=== PATIENT | male | born 1950 | race Caucasian/White ===

== ENCOUNTER → 2017-03-21 | Outpatient (CLI) | payer MEDICARE ==
--- NOTE | 2017-03-21 09:19 | US ---
EXAMINATION TYPE: US abdomen complete DATE OF EXAM: 03/21/2017 COMPARISON: NONE CLINICAL HISTORY: R11.2 Nausea, vomiting, diarrhea. EXAM MEASUREMENTS: Liver Length: 14.9 cm Gallbladder Wall: 0.2 cm CBD: 0.5 cm Spleen: 10.8 cm Right Kidney: 9.9 x 5.5 x 5.4 cm Left Kidney: 11.7 x 6.5 x 5.6 cm Pancreas: Tail obscured by overlying bowel gas, visualized portions show no mass Liver: Coarse, heterogeneous echotexture Gallbladder: wnl Evidence for sonographic Bravo's sign: No CBD: wnl Spleen: wnl Right Kidney: Multiple cystic areas visualized. Largest in lower pole measuring 7.1 x 7.4 x 6.7 cm Left Kidney: No hydronephrosis or masses seen Upper IVC: wnl Abd Aorta: wnl IMPRESSION: 1. Large inferior pole right renal cyst. 2. Visualized abdomen otherwise is unremarkable
== END | disposition home or self-care (01) ==
LOC: RADUSWWP 08:04
PROVIDERS: ATTEND Family Medicine
DX: N28.1 Cyst of kidney, acquired (principal); R11.2 Nausea with vomiting, unspecified
CPT/HCPCS: 76700

== ENCOUNTER → 2017-11-03 | Outpatient (CLI) | payer MEDICARE | END | disposition home or self-care (01) | LOC: LABWHC1 08:56 | PROVIDERS: ATTEND Nurse Practitioner | DX: Z12.5 Encounter for screening for malignant neoplasm of prostate (principal) | CPT/HCPCS: 36415; G0103 ==

== ENCOUNTER → 2018-06-24 | Outpatient (CLI) | payer MEDICARE ==
[2018-06-24 11:05] LABS: Prothrombin Time 19.3 sec (9.0-12.0)
== END ==
LOC: LABWHC1 09:44
PROVIDERS: ATTEND Internal Medicine Cardiovascular Disease
DX: I48.2 Chronic atrial fibrillation (principal)
CPT/HCPCS: 36415; 85610

== ENCOUNTER → 2018-10-27 | Outpatient (CLI) | payer MEDICARE ==
--- NOTE | 2018-10-27 14:17 | US ---
EXAMINATION TYPE: US scrotum with doppler. Grayscale and color Doppler Duplex imaging performed of t he scrotum. DATE OF EXAM: 10/27/2018 COMPARISON: NONE CLINICAL HISTORY: N50.9 Disorder of male genital organs. pea sized palp on right testicle for a few w eeks EXAM MEASUREMENTS: TESTICLES: Right Testicle: 3.9 x 3.2 x 2.3 cm Left Testicle: 4.1 x 3.8 x 2.1 cm EPIDIDYMIS HEAD: Right Epididymis: 1.1 cm Left Epididymis: 1.0 cm Doppler performed to assess for testicular vascularity; good bilateral color flow and waveforms are s een. There is no evidence of testicular torsion. Presence of hydroceles: mild bilaterally Presence of varicoceles: yes, mild on the right, more prominent lateral to left testicle. 5mm calcification seen at area of palp near right epididymis appearance of rete testis on the left midline calcification seen on bilateral testicle imaging at end of exam. IMPRESSION: 1. Focal calcification at the site of clinical concern near the right epididymis.
== END | disposition home or self-care (01) ==
LOC: RADUSWWP 13:27
PROVIDERS: ATTEND Family Medicine
DX: N50.89 Other specified disorders of the male genital organs (principal)
CPT/HCPCS: 76870; 93975

== ENCOUNTER 2024-04-02 22:09 | Inpatient (IN) | payer MEDICARE ==
[2024-04-02] MEDS: ADENOSINE 3 MG/ML 2 ML VIAL IVP STA (22:25)
--- NOTE | 2024-04-02 22:39 | ED ---
Chest Pain HPI - General Chief Complaint: Chest Pain Stated Complaint: Chest Pain Time Seen by Provider: 04/02/24 22:19 Source: patient Mode of arrival: ambulatory Limitations: no limitations - History of Present Illness Initial Comments: This patient is a 73-year-old man who presents to have evaluation of thoracic back pain radiating to the chest. He states that it came on tonight approximately 2 to 3 hours ago. He states he was just sitting when it came on. The patient also noted some shortness of breath and diaphoresis. When the symptoms did not resolve family convinced him to be seen here. MD Complaint: chest pain Onset/Timin -: hour(s) Onset: during rest Pain Location: substernal Pain Radiation: back Severity: moderate Quality: aching Consistency: constant Improves With: nothing Worsens With: nothing Anginal Symptoms: diaphoresis, dyspnea Treatments Prior to Arrival: none - Related Data Home Medications Medication Instructions Recorded Confirmed metFORMIN HCL [Glucophage] 500 mg PO AC-BID 03/30/15 04/03/24 Apixaban [Eliquis] 5 mg PO BID 04/03/24 04/03/24 gemfibroziL [Lopid] 600 mg PO AC-BID 04/03/24 04/03/24 Previous Rx's Medication Instructions Recorded Amiodarone [Cordarone] 200 mg PO BID 60 Days #30 tab 04/08/24 Aspirin 81 mg PO DAILY 30 Days #30 tab 04/08/24 Atorvastatin [Lipitor] 80 mg PO DAILY 30 Days #30 tab 04/08/24 Losartan [Cozaar] 100 mg PO DAILY 30 Days #30 tab 04/08/24 Metoprolol Succinate (ER) [Toprol 75 mg PO DAILY 30 Days #30 tab 04/08/24 XL] Nitroglycerin Sl Tabs [Nitrostat] 0.4 mg SUBLINGUAL Q5M PRN 30 Days 04/08/24 #25 tab Spironolactone [Aldactone] 50 mg PO DAILY 30 Days #30 tab 04/08/24 Allergies Allergy/AdvReac Type Severity Reaction Status Date / Time No Known Allergies Allergy Verified 04/03/24 09:37 Review of Systems ROS Statement: Those systems with pertinent positive or pertinent negative responses have been documented in the HPI. ROS Other: All systems not noted in ROS Statement are negative. Constitutional: Denies: fever, chills, weakness Respiratory: Reports: dyspnea. Denies: cough, wheezes Cardiovascular: Reports: chest pain. Denies: palpitations, orthopnea, edema, syncope Gastrointestinal: Denies: abdominal pain, nausea, vomiting, diarrhea, melena, hematochezia Genitourinary: Denies: dysuria, hematuria Musculoskeletal: Denies: back pain Skin: Denies: rash Neurological: Denies: headache, weakness, numbness EKG Findings - EKG Results: EKG: interpreted by ILENE Past Medical History Past Medical History: Atrial Fibrillation, Coronary Artery Disease (CAD), Diabetes Mellitus, Hyperlipidemia, Hypertension, Myocardial Infarction ([place]) Additional Past Medical History / Comment(s): GOUT Last Myocardial Infarction Date:: 1990 History of Any Multi-Drug Resistant Organisms: None Reported Past Surgical History: Heart Catheterization, Heart Catheterization With Stent Additional Past Surgical History / Comment(s): heart cath Past Anesthesia/Blood Transfusion Reactions: Motion Sickness Date of Last Stent Placement:: 08/02/02 Past Psychological History: No Psychological Hx Reported Smoking Status: Never smoker Past Alcohol Use History: Occasional Past Drug Use History: Marijuana - Past Family History Mother Family Medical History: Cancer General Exam Limitations: no limitations General appearance: alert, in no apparent distress Head exam: Present: atraumatic, normocephalic Eye exam: Present: normal appearance. Absent: scleral icterus, conjunctival injection ENT exam: Present: normal oropharynx Neck exam: Present: normal inspection, full ROM Respiratory exam: Present: normal lung sounds bilaterally. Absent: respiratory distress, wheezes, rales, rhonchi, stridor, chest wall tenderness, accessory muscle use Cardiovascular Exam: Present: tachycardia. Absent: systolic murmur, diastolic murmur, rubs, gallop GI/Abdominal exam: Present: soft. Absent: distended, tenderness, guarding, rebound, rigid, mass, pulsatile mass Extremities exam: Present: normal inspection, normal capillary refill. Absent: pedal edema, calf tenderness Back exam: Present: normal inspection. Absent: CVA tenderness (R), CVA tenderness (L) Neurological exam: Present: alert Skin exam: Present: warm, dry, intact, normal color. Absent: rash Course Vital Signs 04/02/24 04/02/24 04/02/24 22:13 22:33 22:40 Temperature 97.8 F Pulse Rate 202 H 203 H 200 H Pulse Rate [ Supine Patient Transport Officer] Respiratory 20 14 14 Rate Blood Pressure 126/84 113/87 125/74 O2 Sat by Pulse 98 98 97 Oximetry 04/02/24 04/02/24 04/03/24 22:50 22:51 00:13 Temperature Pulse Rate 200 H 67 Pulse Rate [ 200 H Supine Patient Transport Officer] Respiratory 12 20 Rate Blood Pressure 118/95 85/65 O2 Sat by Pulse 98 Oximetry 04/03/24 04/03/24 04/03/24 01:39 03:00 04:32 Temperature Pulse Rate 63 69 60 Pulse Rate [ Supine Patient Transport Officer] Respiratory 18 20 18 Rate Blood Pressure 100/60 92/65 114/75 O2 Sat by Pulse 95 96 98 Oximetry 04/03/24 04/03/24 04/03/24 08:00 11:00 12:00 Temperature Pulse Rate 63 61 71 Pulse Rate [ Supine Patient Transport Officer] Respiratory 20 16 16 Rate Blood Pressure 115/71 126/79 131/79 O2 Sat by Pulse 96 92 L Oximetry 04/03/24 13:00 Temperature Pulse Rate 65 Pulse Rate [ Supine Patient Transport Officer] Respiratory 18 Rate Blood Pressure 130/60 O2 Sat by Pulse 98 Oximetry Procedures - Procedural Sedation *Risks,benefits, and alternative therapies discussed?: Yes *Patient indicates understanding of risk/benefit discussion?: Yes *Indications: other (Synchronized cardioversion) *Previous Adverse Reaction to Anesthesia/Sedation?: No *ASA Class: II *Mallampati Airway Score: 1 Preparation: monitoring tech applied, pulse oximeter, supplemental O2 applied, suction/airway equipment at bedside, IV secured IV Propofol Dose (mgs): 80 Complications: none Patient Tolerated Procedure: well, no complications Chest Pain MDM - MDM The patient had chest x-ray that I interpreted as negative for acute infiltrate, pneumothorax, congestive heart failure Was pt. sent in by a medical professional or institution (, PA, PET AMBASSADOR, urgent care, hospital, or [facility]...) When possible be specific @ -[No] Did you speak to anyone other than the patient for history (EMS, parent, family, police, friend...)? What history was obtained from this source @ -[No] Did you review nursing and triage notes (agree or disagree)? Why? @ -[I reviewed and agree with nursing and triage notes] Were old charts reviewed (outside hosp., previous admission, EMS record, old EKG, old radiological studies, urgent care reports/EKG's, [facility] records)? Report findings @ -[Yes, old charts were reviewed] Differential Diagnosis (chest pain, altered mental status, abdominal pain women, abdominal pain men, vaginal bleeding, weakness, fever, dyspnea, syncope, headache, dizziness, GI bleed, back pain, seizure, CVA, palpatations, mental health, musculoskeletal)? @ -[Differential Chest Pain: Stable Angina, Unstable Angina, STEMI, NSTEMI Aortic Dissection, Pneumothorax, Musculoskeletal, Esophageal Spasm GERD, Cholecystitis, Pancreatitis, Zoster, this is not meant to be an all-inclusive list. EKG interpreted by me (3pts min.). @ -[I interpreted as above] X-rays interpreted by me (1pt min.). @ -[I interpreted as above CT interpreted by me (1pt min.). @ -[None done] U/S interpreted by me (1pt. min.). @ -[None done] What testing was considered but not performed or refused? (CT, X-rays, U/S, labs)? Why? @ -[None] What meds were considered but not given or refused? Why? @ -[None] Did you discuss the management of the patient with other professionals (professionals i.e. , PA, PET AMBASSADOR, lab, RT, psych nurse, director social welfare, stuffer, teacher, property officer, case finishing machine adjuster)? Give summary @ -[I discussed the patient's case with the admitting physician and also with cardiology on-call. Treatment recommendations are incorporated Was smoking cessation discussed for >3mins.? @ -[No] Was critical care preformed (if so, how long)? @ -[Yes, 45 minutes Were there social determinants of health that impacted care today? How? (Homelessness, low income, unemployed, alcoholism, drug addiction, transportation, low edu. Level, literacy, decrease access to med. care, custodial, rehab)? @ -[No] Was there de-escalation of care discussed even if they declined (Discuss DNR or withdrawal of care, Hospice)? DNR status @ -[No] What co-morbidities impacted this encounter? (DM, HTN, Smoking, COPD, CAD, Cancer, CVA, ARF, Chemo, Hep., AIDS, mental health diagnosis, sleep apnea, morbid obesity)? @ -[CAD, previous myocardial infarction Was patient admitted / discharged? Hospital course, mention meds given and route, prescriptions, significant lab abnormalities, going to OR and other pertinent info. @ -[Patient is admitted to have further cardiology evaluation and treatment Undiagnosed new problem with uncertain prognosis? @ -[No] Drug Therapy requiring intensive monitoring for toxicity (Heparin, Nitro, Insulin, Cardizem)? @ -[No] Were any procedures done? @ -Yes, synchronized cardioversion. I discussed the risks, benefits, indications of both cardioversion and procedural sedation and the patient did consent. The patient given IV propofol and once adequate sedation was obtained the patient given synchronized cardioversion which resulted in patient reverting to sinus rhythm. No complications related to procedure Diagnosis/symptom? @ -[Acute ventricular tachycardia NSTEMI Synchronized cardioversion with procedural sedation Acute, or Chronic, or Acute on Chronic? @ -[Acute Uncomplicated (without systemic symptoms) or Complicated (systemic symptoms)? @ -[Uncomplicated Side effects of treatment? @ -[No] Exacerbation, Progression, or Severe Exacerbation? @ -[No] Poses a threat to life or bodily function? How? (Chest pain, [place], [place], pneumonia, PE, COPD, DKA, ARF, appy, cholecystitis, CVA, Diverticulitis, Homicidal, Suicidal, threat to staff... and all critical care pts) @ -[Yes Disposition Clinical Impression: Ventricular tachycardia Disposition: ADMITTED IP TO THIS HOSP Condition: Serious
[2024-04-02] MEDS: DEXTROSE 5% IN WATER 100 ML with AMIODARONE 150 MG IV ONE (22:46)
[2024-04-02] MEDS: ASPIRIN 81 MG PO STA (22:48)
[2024-04-02 22:50] LABS: Basophils % (A) 0 %; Eosinophils # (A) 0.1 k/uL (0-0.7); Eosinophils % (A) 1 %; HCT 45.6 % (39.0-53.0); HGB 14.3 gm/dL (13.0-17.5); Lymphocytes # (A) 0.9 k/uL (1.0-4.8); Lymphocytes % (A) 8 %; MCH 30.8 pg (25.0-35.0); MCHC 31.3 g/dL (31.0-37.0); MCV 98.3 fL (80.0-100.0); Mean Platelet Volume 6.8; Monocytes # (A) 0.5 k/uL (0-1.0); Monocytes % (A) 5 %; Neutrophils # (A) 9.9 k/uL (1.3-7.7); Neutrophils % (A) 85 %; Platelet Count 268 k/uL (150-450); RBC 4.64 m/uL (4.30-5.90); RDW 13.2 % (11.5-15.5); WBC 11.6 k/uL (3.8-10.6)
[2024-04-02 23:00] LABS: ALT 16 U/L (4-49); AST 28 U/L (17-59); African American GFR (CKD) 68 (>60 ml/min/1.73 sqM); Albumin 4.7 g/dL (3.5-5.0); Alkaline Phosphatase 91 U/L (38-126); Anion Gap 11 mmol/L; Blood Urea Nitrogen 31 mg/dL (9-20); Calcium 10.2 mg/dL (8.4-10.2); Carbon Dioxide 23 mmol/L (22-30); Chloride 103 mmol/L (98-107); Glucose 191 mg/dL (74-99); INR 1.2 (<1.2); Magnesium 1.6 mg/dL (1.6-2.3); Non-African American GFR(CKD) 59 (>60 ml/min/1.73 sqM); Potassium 4.4 mmol/L (3.5-5.1); Prothrombin Time 12.3 sec (10.0-12.5); Sodium 137 mmol/L (137-145); Total Bilirubin 0.7 mg/dL (0.2-1.3); Total Protein 7.5 g/dL (6.3-8.2)
[2024-04-02] MEDS: AMIODARONE 360 MG in DEXTROSE 5% IN WATER 200 ML IV ONE (23:17)
[2024-04-03] MEDS: PROPOFOL 10 MG/ML 20 ML VIAL IV ONE (00:06)
--- NOTE | 2024-04-03 01:41 | XR ---
EXAM: XR Chest, 1 View CLINICAL HISTORY: ITS.REASON XR Reason: dysrhythmia TECHNIQUE: Frontal view of the chest. COMPARISON: No relevant prior studies available. FINDINGS: Lungs: Moderate RIGHT middle lobe pneumonia. Pleural space: Unremarkable. No pneumothorax. Heart: Cardiomegaly. Mediastinum: Unremarkable. Normal mediastinal contour. Bones/joints: Unremarkable. No acute fracture. IMPRESSION: Moderate RIGHT middle lobe pneumonia.
[2024-04-03] MEDS ORDERED: NITROGLYCERIN SL TABS 0.4 MG TAB SUBLINGUAL PRN ×2 (01:50→11:40)
[2024-04-03] MEDS: HEPARIN SODIUM 1,000 UN/ML (10ML VL) IV ONE (02:20)
[2024-04-03] MEDS: HEPARIN SOD,PORK IN 0.45% NACL 25,000 UNIT in 0.45% NACL 1 250ML.BAG IV SCH (02:21)
[2024-04-03 03:56] LABS: Appearance,Urine Clear (Clear); Bilirubin,Urine Negative (Negative); Blood,Urine Negative (Negative); Color,Urine Light Yellow; Glucose,Urine (UA) Negative (Negative); Ketones,Urine Negative (Negative); Leukocyte Esterase,Urine Negative (Negative); Nitrite,Urine Negative (Negative); PH, Urine 5.5 (5.0-8.0); Protein,Urine Trace (Negative); Specific Gravity,Urine 1.026 (1.001-1.035); Urobilinogen,Urine <2.0 mg/dL (<2.0)
[2024-04-03] MEDS: AZITHROMYCIN 500 MG TAB PO STA (04:30)
[2024-04-03 04:34] LABS: Mean Platelet Volume 7.9; Platelet Count 223 k/uL (150-450)
[2024-04-03] MEDS ORDERED: HEPARIN SODIUM,PORCINE (1 ML) 2,500 UNIT in SODIUM CHLORIDE 0.9% 250 ML IRRIGATION PRN (07:00)
[2024-04-03] MEDS ORDERED: HEPARIN SODIUM,PORCINE 10,000 UNIT in SODIUM CHLORIDE 0.9% 1,000 ML IRRIGATION PRN (07:00)
[2024-04-03] MEDS: ONDANSETRON 4 MG/2 ML VIAL IVP STA (07:08)
[2024-04-03] MEDS: METOPROLOL TARTRATE 25 MG TAB PO SCH (10:29)
[2024-04-03] MEDS ORDERED: ALPRAZolam 0.5 MG TAB PO PRN (11:40)
--- NOTE | 2024-04-03 11:48 | P.CRDCN ---
History of Present Illness Consult date: 04/03/24 History of present illness: History of Present Illness: The patient is a 73-year-old male who is followed by cyber forensic specialist in [place] and presents to the hospital with symptoms of back discomfort, chest discomfort and dyspnea, reminding him of the way he felt prior to his PCI. He has a known history of CAD status post stenting in the 90s, underwent cardiac catheterizat ion according to him few months ago and no intervention was needed with mild to moderate disease, detail of his workup is unavailable. He had a prior history of myocardial infarction prior to the stenting. On presentation he was tachycardic with a rate in the 200 and his EKG was consistent with ventricular tachycardia. He was given initially adenosine and subsequently amiodarone without change and subsequently underwent cardioversion with muslim of sinus mechanism. He is doing well this morning, he denies any chest discomfort, his breathing is stable. He denies any dizziness or palpitations. He has a prior history of paroxysmal atrial fibrillation and has been anticoagulated. He has no significant peripheral edema, no PND or orthopnea. He is unaware of his ejection fraction but does not carry the diagnosis of CHF or cardiomyopathy. His lab data showed a troponin elevated up to 7.1, his EKG is consistent with anterior wall myocardial infarction. His clearance factors are positive for hypertension, hyperlipidemia, diabetes, he smokes marijuana. Medications: Metformin, Lopid, Tenormin 25 mg daily, losartan 25 mg daily, Lipitor 40 mg daily, Eliquis 5 mg twice a day Review of Systems: Respiratory: He has dyspnea on exertion but no recent wheezing or cough GI: No nausea or vomiting . No history of peptic ulcer disease. No recent GI bleed. He has a remote history of bleeding and is scheduled to undergo colonoscopy by Dr. Justice : No hematuria or dysuria. Nervous System: No stroke or seizure. Physical Examination: 73-year-old male, alert oriented no apparent distress,Blood pressure 126/79, Heart rate 60 Head: Normocephalic. Eyes: Sclerae nonicteric. Neck: Good carotid upstroke, no bruit, no jugular venous distention. Lungs: Clear to auscultation. Heart: Regular rate and rhythm, S1-S2, no S3, no rub. Systolic ejection murmur. Abdomen: Soft nontender, positive bowel sounds no organomegaly. Extremities: No edema, intact distal pulses. Labs: Hemoglobin 14.3, BUN 31, creatinine 1.21. Troponin 0.22, 4.2, 7.1. Chest x-ray with suggestion of right middle lobe pneumonia EKG: Wide-complex tachycardia at a rate of 202 consistent with ventricular tachycard ia, subsequently sinus mechanism with QS pattern in the anterior leads consistent with anterior wall myocardial infarction Impression: 1. Ventricular tachycardia, status post cardioversion, back in sinus mechanism 2. Acute coronary syndrome, unclear if the anterior wall myocardial infarction is recent, no old EKGs available 3. History of prior stenting 4. History of hypertension 5. History of hyperlipidemia 6. History of diabetes Plan: 1. Continue IV heparin 2. Continue beta-ricardo 3. Obtain an echocardiogram with Doppler 4. Proceed with coronary angiography, the risks and the complications were discussed with the patient and his family, he is in full understanding and agreement 5. Thank you for this consult we will follow with you Past Medical History Past Medical History: Atrial Fibrillation, Coronary Artery Disease (CAD), Diabetes Mellitus, Hyperlipidemia, Hypertension, Myocardial Infarction ([place]) Additional Past Medical History / Comment(s): GOUT Last Myocardial Infarction Date:: 1990 History of Any Multi-Drug Resistant Organisms: None Reported Past Surgical History: Heart Catheterization, Heart Catheterization With Stent Additional Past Surgical History / Comment(s): heart cath Past Anesthesia/Blood Transfusion Reactions: Motion Sickness Date of Last Stent Placement:: 08/02/02 Past Psychological History: No Psychological Hx Reported Smoking Status: Never smoker Past Alcohol Use History: Occasional Past Drug Use History: Marijuana - Past Family History Mother Family Medical History: Cancer Medications and Allergies Home Medications Medication Instructions Recorded Confirmed Type Atorvastatin [Lipitor] 40 mg PO HS 03/30/15 04/03/24 History metFORMIN HCL [Glucophage] 500 mg PO AC-BID 03/30/15 04/03/24 History Apixaban [Eliquis] 5 mg PO BID 04/03/24 04/03/24 History Losartan [Cozaar] 25 mg PO HS 04/03/24 04/03/24 History atenoloL [Tenormin] 25 mg PO DAILY 04/03/24 04/03/24 History gemfibroziL [Lopid] 600 mg PO AC-BID 04/03/24 04/03/24 History Allergies Allergy/AdvReac Type Severity Reaction Status Date / Time No Known Allergies Allergy Verified 04/03/24 09:37 Physical Exam Vitals: Vital Signs Temp Pulse Pulse Resp BP Pulse Ox 04/03/24 11:00 61 16 126/79 04/03/24 08:00 63 20 115/71 96 04/03/24 04:32 60 18 114/75 98 04/03/24 03:00 69 20 92/65 96 04/03/24 01:39 63 18 100/60 95 04/03/24 00:13 67 20 85/65 98 04/02/24 22:51 200 H 04/02/24 22:50 200 H 12 118/95 04/02/24 22:40 200 H 14 125/74 97 04/02/24 22:33 203 H 14 113/87 98 04/02/24 22:13 97.8 F 202 H 20 126/84 98 Intake and Output 04/02/24 04/03/24 04/03/24 22:59 06:59 14:59 Intake Total 32.895 Balance 32.895 Intake: Intake, IV Titration 32.895 Amount Heparin Sod,Pork in 0.45% 32.895 NaCl 25,000 unit In 0.45 % NaCl 1 250ml.bag @ 12 UNITS/KG/HR 10.07 mls/hr IV .Q24H [facility] Rx#: [id number] Other: Weight 83.915 kg Results 04/03/24 03:55 04/02/24 22:36 Cardiac Enzymes 04/02/24 04/02/24 04/03/24 Range/Units 22:36 22:36 03:55 AST 28 (17-59) U/L Troponin I 0.222 H* 4.230 H* (0.000-0.034) ng/mL 04/03/24 Range/Units 07:45 AST (17-59) U/L Troponin I 7.150 H* (0.000-0.034) ng/mL Coagulation 04/02/24 04/03/24 Range/Units 22:36 03:55 PT 12.3 (10.0-12.5) sec APTT 29.0 94.5 H (22.0-30.0) sec CBC 04/02/24 04/03/24 Range/Units 22:36 03:55 WBC 11.6 H (3.8-10.6) k/uL RBC 4.64 (4.30-5.90) m/uL Hgb 14.3 (13.0-17.5) gm/dL Hct 45.6 (39.0-53.0) % Plt Count 268 223 (150-450) k/uL Comprehensive Metabolic Panel 04/02/24 Range/Units 22:36 Sodium 137 (137-145) mmol/L Potassium 4.4 (3.5-5.1) mmol/L Chloride 103 (98-107) mmol/L Carbon Dioxide 23 (22-30) mmol/L BUN 31 H (9-20) mg/dL Creatinine 1.21 (0.66-1.25) mg/dL Glucose 191 H (74-99) mg/dL Calcium 10.2 (8.4-10.2) mg/dL AST 28 (17-59) U/L ALT 16 (4-49) U/L Alkaline Phosphatase 91 (38-126) U/L Total Protein 7.5 (6.3-8.2) g/dL Albumin 4.7 (3.5-5.0) g/dL Current Medications Generic Name Dose Route Start Last Admin Trade Name Freq PRN Reason Stop Dose Admin Heparin Sodium/Sodium Chloride 250 mls @ 10.07 mls/hr 04/03/24 02:00 04/03/24 06:55 25,000 unit/ Sodium Chloride IV 9 units/kg/hr .Q24H JONI 7.552 mls/hr Titration Protocol 12 UNITS/KG/HR Metoprolol Tartrate 25 mg 04/03/24 09:00 04/03/24 10:29 Metoprolol Tartrate 25 Mg Tab PO Not Given BID [facility] Nitroglycerin 0.4 mg 04/03/24 01:50 Nitroglycerin Sl Tabs 0.4 Mg Tab SUBLINGUAL Q5M PRN Chest Pain Intake and Output 04/02/24 04/03/24 04/03/24 22:59 06:59 14:59 Intake Total 32.895 Balance 32.895 Intake: Intake, IV Titration 32.895 Amount Heparin Sod,Pork in 0.45% 32.895 NaCl 25,000 unit In 0.45 % NaCl 1 250ml.bag @ 12 UNITS/KG/HR 10.07 mls/hr IV .Q24H [facility] Rx#: [id number] Other: Weight 83.915 kg 04/03/24 03:55 04/02/24 22:36
[2024-04-03] MEDS: ATORVASTATIN 80 MG TAB PO STA (12:28)
[2024-04-03] MEDS: ASPIRIN 325 MG TAB PO STA (12:28)
--- NOTE | 2024-04-03 13:58 | CA ---
Transthoracic Echo Report Name: Jameel Ferreira Age: 73 Gender: M : 1950 Exam Date: 04/03/2024 11:55 Exam Location: [facility] Ht (in): 67 Wt (lb): 185 Ordering Physician: Zenaida López MD ([id number]) Attending/Referring Phys: Wink Cutter Operator Matilde Ibarra RDCS Procedure CPT: Indications: CAD Cardiac Hx: stents Technical Quality: Technically difficult study Contrast 1: Definity Total Dose (mL): 2 Contrast 2: Total Dose (mL): MEASUREMENTS (Male / Female) Normal Values 2D ECHO LV Diastolic Diameter PLAX 4.6 cm 4.2 - 5.9 / 3.9 - 5.3 cm LV Systolic Diameter PLAX 3.6 cm IVS Diastolic Thickness 1.4 cm 0.6 - 1.0 / 0.6 - 0.9 cm LVPW Diastolic Thickness 1.4 cm 0.6 - 1.0 / 0.6 - 0.9 cm LV Relative Wall Thickness 0.6 RV Internal Dim ED PLAX 2.9 cm LVOT Diameter 2.0 cm LA Systolic Diameter LX 4.9 cm 3.0 - 4.0 / 2.7 - 3.8 cm LV Diastolic Volume MOD BP 119.3 cm??? 67 - 155 / 56 - 104 cm??? LV Systolic Volume MOD BP 76.0 cm??? 22 - 58 / 19 - 49 cm??? LV Ejection Fraction MOD BP 36.3 % >= 55 % LV Cardiac Index MOD BP 1526.6 cm???/min???m??? LV Diastolic Volume MOD 4C 117.3 cm??? LV Systolic Volume MOD 4C 68.4 cm??? LV Ejection Fraction MOD 4C 41.7 % LV Cardiac Index MOD 4C 1723.9 cm???/min???m??? LV Diastolic Length 4C 8.4 cm LV Systolic Length 4C 8.5 cm LV Diastolic Volume MOD 2C 117.5 cm??? LV Systolic Volume MOD 2C 81.3 cm??? LV Ejection Fraction MOD 2C 30.8 % LV Cardiac Index MOD 2C 1276.7 cm???/min???m??? LV Diastolic Length 2C 8.7 cm LV Systolic Length 2C 9.2 cm LA Volume 106.5 cm??? 18 - 58 / 22 - 52 cm??? LA Volume Index 52.9 cm???/m??? 16 - 28 cm???/m??? M-MODE Aortic Root Diameter MM 3.0 cm AV Cusp Separation MM 1.8 cm DOPPLER AV Peak Velocity 201.7 cm/s AV Peak Gradient 16.3 mmHg AV Mean Velocity 117.6 cm/s AV Mean Gradient 6.9 mmHg AV Velocity Time Integral 38.0 cm AI Peak Velocity 383.8 cm/s AI Peak Gradient 58.9 mmHg AI Pressure Half Time 791.7 ms MV Area PHT 4.9 cm??? MV Deceleration Time 148.4 ms TR Peak Velocity 306.1 cm/s TR Peak Gradient 37.5 mmHg Right Ventricular Systolic Press 41.3 mmHg FINDINGS Left Ventricle Left ventricular ejection fraction is estimated at 35-40 %. Left ventricular cavity size normal. Moderate concentric left ventricular hypertrophy. Anteroapical, anteroseptal and anterolateral akinesis with moderately impaired left ventricle systolic function Right Ventricle Normal right ventricular size. Mildly reduced right ventricular global systolic function. Mild pulmonary hypertension. Right Atrium Severe right atrial dilatation. Left Atrium Moderately increased left atrial diameter. Severely increased left atrial volume. Moderately increased left atrial area. No left atrial thrombus or mass present. Mitral Valve Mitral valve thickened. Moderate mitral annular calcification. Mild to moderate mitral regurgitation. No evidence for mitral valve prolapse. No mitral stenosis. Aortic Valve Trileaflet aortic valve. Thickened aortic valve . Mild aortic stenosis with a peak gradient of 16 mmHg and a mean gradient of 7 mmHg. Mild aortic regurgitation. Tricuspid Valve Structurally normal tricuspid valve. Mild tricuspid regurgitation. Pulmonic Valve Structurally normal pulmonic valve. Trace pulmonic regurgitation. Pericardium No pericardial or pleural effusion. Aorta Normal size aortic root and proximal ascending aorta. CONCLUSIONS 1. Moderately impaired left ventricular systolic function with segmental wall motion abnormality consistent with CAD 2. Mild to moderate mitral and mild tricuspid regurgitation with mild pulmonary hypertension 3. Mild aortic stenosis and mild aortic regurgitation Previewed by: Dr. Zenaida López MD (Electronically Signed) Final Date: 03 April 2024 13:57
[2024-04-03] MEDS: IV FLUID CONTINUATION 800 ML IV ONE (14:12)
[2024-04-03] MEDS: fentaNYL (PF) 50 MCG/ML 2 ML AMP IVP ONE (14:23)
[2024-04-03] MEDS: MIDAZOLAM 2 MG/2 ML VIAL IVP ONE (14:25)
[2024-04-03] MEDS: LIDOCAINE 1% INJ 10MG/ML (20 ML MDV) SQ ONE ×2 (14:28→14:33)
[2024-04-03] MEDS: HEPARIN SODIUM 1,000 UN/ML (10ML VL) IVP ONE (14:33)
[2024-04-03] MEDS: VERAPAMIL SYRINGE (5 MG/10 ML) INTRAARTER ONE (14:33)
[2024-04-03] MEDS: HEPARIN SODIUM,PORCINE 10,000 UNIT in SODIUM CHLORIDE 0.9% 1,000 ML IRRIGATION ONE (14:41)
[2024-04-03] MEDS: HEPARIN SODIUM,PORCINE (1 ML) 2,500 UNIT in SODIUM CHLORIDE 0.9% 250 ML IRRIGATION ONE (14:41)
[2024-04-03] MEDS: IOPAMIDOL-370 200ML BTL INJ ONE (14:42)
--- NOTE | 2024-04-03 14:56 | P.HPIM ---
History of Present Illness H&P Date: 04/03/24 Jameel Ferreira, is a 73-year-old male who presented to [facility] emergency room with a chief complaint of chest discomfort radiating to the middle of his back and shortness of breath. Patient stated that he had a myocardial infarction in 1992 followed by cardiac catheterization with angioplasty and stent placement, at that time. Patient states that few months ago he had cardiac catheterization, he had minimal disease without any need for angioplasty or stent placement. On presentation to emergency room heart rate was in the 200s, EKG revealed ventricular tachycardia, and patient underwent cardioversion, he was started on IV heparin, IV amiodarone, and cardiology consultation was requested He was evaluated in the emergency room vital examination on presentation revealed a temperature of 97.8 pulse 202 respiration 20 blood pressure 126/84 pulse ox 98% on room air Laboratory data revealed a white blood count of 11.6 hemoglobin 14.3 platelet count 268 BUN 31 creatinine 1.21 troponin level 0.22 Testing in the emergency room revealed EKG revealed ventricular tachycardia, chest x-ray revealed right middle lobe infiltrate. Patient was admitted to telemetry floor for further evaluation and treatment Past Medical History Past Medical History: Atrial Fibrillation, Coronary Artery Disease (CAD), Diabetes Mellitus, Hyperlipidemia, Hypertension, Myocardial Infarction ([place]) Additional Past Medical History / Comment(s): GOUT Last Myocardial Infarction Date:: 1990 History of Any Multi-Drug Resistant Organisms: None Reported Past Surgical History: Heart Catheterization, Heart Catheterization With Stent Additional Past Surgical History / Comment(s): heart cath Past Anesthesia/Blood Transfusion Reactions: Motion Sickness Date of Last Stent Placement:: 08/02/02 Past Psychological History: No Psychological Hx Reported Smoking Status: Never smoker Past Alcohol Use History: Occasional Past Drug Use History: Marijuana - Past Family History Mother Family Medical History: Cancer Medications and Allergies Home Medications Medication Instructions Recorded Confirmed Type Atorvastatin [Lipitor] 40 mg PO HS 03/30/15 04/03/24 History metFORMIN HCL [Glucophage] 500 mg PO AC-BID 03/30/15 04/03/24 History Apixaban [Eliquis] 5 mg PO BID 04/03/24 04/03/24 History Losartan [Cozaar] 25 mg PO HS 04/03/24 04/03/24 History atenoloL [Tenormin] 25 mg PO DAILY 04/03/24 04/03/24 History gemfibroziL [Lopid] 600 mg PO AC-BID 04/03/24 04/03/24 History Allergies Allergy/AdvReac Type Severity Reaction Status Date / Time No Known Allergies Allergy Verified 04/03/24 09:37 Physical Exam Vitals: Vital Signs Temp Pulse Pulse Resp BP Pulse Ox 04/03/24 12:00 71 16 131/79 92 L 04/03/24 11:00 61 16 126/79 04/03/24 08:00 63 20 115/71 96 04/03/24 04:32 60 18 114/75 98 04/03/24 03:00 69 20 92/65 96 04/03/24 01:39 63 18 100/60 95 04/03/24 00:13 67 20 85/65 98 04/02/24 22:51 200 H 04/02/24 22:50 200 H 12 118/95 04/02/24 22:40 200 H 14 125/74 97 04/02/24 22:33 203 H 14 113/87 98 04/02/24 22:13 97.8 F 202 H 20 126/84 98 Intake and Output 04/02/24 04/03/24 04/03/24 22:59 06:59 14:59 Intake Total 32.895 Balance 32.895 Intake: Intake, IV Titration 32.895 Amount Heparin Sod,Pork in 0.45% 32.895 NaCl 25,000 unit In 0.45 % NaCl 1 250ml.bag @ 12 UNITS/KG/HR 10.07 mls/hr IV .Q24H [facility] Rx#: [id number] Other: Weight 83.915 kg In general patient is alert and oriented x 3 in no distress HEENT head normocephalic and atraumatic Neck is supple no JVD no goiter no lymphadenopathy no carotid bruit Chest examination is clear to auscultation no crackles no wheezing Cardiac exam reveals regular heart sounds S1 and S2 no gallops no murmurs Abdomen is soft nontender no organomegaly with normal bowel sounds Extremity exam reveals no edema no cyanosis or clubbing Neurological examination reveals no gross focal deficits Results CBC & Chem 7: 04/03/24 03:55 04/02/24 22:36 Labs: Abnormal Lab Results - Last 24 Hours (Table) 04/02/24 04/02/24 04/02/24 Range/Units 22:36 22:36 22:36 WBC 11.6 H (3.8-10.6) k/uL Neutrophils # 9.9 H (1.3-7.7) k/uL Lymphocytes # 0.9 L (1.0-4.8) k/uL INR 1.2 H (<1.2) APTT (22.0-30.0) sec BUN 31 H (9-20) mg/dL Glucose 191 H (74-99) mg/dL Troponin I (0.000-0.034) ng/mL Urine Protein (Negative) 04/02/24 04/03/24 04/03/24 Range/Units 22:36 03:49 03:55 WBC (3.8-10.6) k/uL Neutrophils # (1.3-7.7) k/uL Lymphocytes # (1.0-4.8) k/uL INR (<1.2) APTT 94.5 H (22.0-30.0) sec BUN (9-20) mg/dL Glucose (74-99) mg/dL Troponin I 0.222 H* (0.000-0.034) ng/mL Urine Protein Trace H (Negative) 04/03/24 04/03/24 04/03/24 Range/Units 03:55 07:45 12:41 WBC (3.8-10.6) k/uL Neutrophils # (1.3-7.7) k/uL Lymphocytes # (1.0-4.8) k/uL INR (<1.2) APTT 36.5 H (22.0-30.0) sec BUN (9-20) mg/dL Glucose (74-99) mg/dL Troponin I 4.230 H* 7.150 H* (0.000-0.034) ng/mL Urine Protein (Negative) Assessment and Plan Plan: Chest pain and shortness of breath on presentation Elevated troponin levels Ventricular tachycardia in the emergency room with cardioversion Underlying history of hypertension Underlying history of hyperlipidemia Underlying history of diabetes mellitus Previous history of coronary artery disease with angioplasty and stent placement more than 30 years ago Right middle lobe infiltrate on chest x-ray At this time patient was seen and examined. Patient underwent cardioversion in the emergency room and was started on IV heparin and IV amiodarone He was seen by cardiology, and plan is to proceed with cardiac catheterization. Will add pulmonary consultation in regard to right middle lobe infiltrate Will follow closely
[2024-04-03] MEDS ORDERED: RX INFO: IV CONTRAST WAS GIVEN 1 EACH MISC MISCELLANE PRN (15:07)
--- NOTE | 2024-04-03 15:15 | P.CARDCATH ---
Date of Procedure: 04/03/24 Description of Procedure: Cardiac Catheterization: The patient is a 73-year-old male who presented to the hospital with back and chest discomfort and was found to be in ventricular tachycardia, underwent cardioversion. His EKG subsequently showed sinus mechanism with evidence of anterior wall myocardial infarction, appears to be old with troponin elevation. His echocardiogram showed anteroapical and anteroseptal akinesis. The patient has prior stenting done over 20 years ago, details of that are not available. Recommendations were made regarding cardiac catheterization, the risks and the complications were discussed with the patient who is in full understanding and agreement. 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 Using Xylocaine Anesthesia and modified Seldinger technique, a 6-Cuban sheath was introduced in the left radial artery . Subsequently, selective coronary angiography was performed using a 5-Cuban 4 bend Shiva catheter. Multiple views of the coronary artery including hemiaxial views were obtained. The 6 Cuban pigtail catheter was used to cross the aortic valve and LVEDP was calculated. Following that, catheter and sheath were removed. Hemostasis was obtained with deployment of vascular band . There was no immediate complication. Patient was returned to room in stable condition. Of note, the patient received a total of 4500 units of intravenous heparin as well as intra-arterial verapamil. Findings: Fluoroscopy: Calcification of the LAD was noted Left main: This is a short size vessel, bifurcating into LAD and left circumflex, left main has no obstructive disease LAD: This is a large size vessel that has a stent in the proximal segment, the stented segment is patent. There is a 20 to 30% in-stent restenosis, the rest of the vessel has no high-grade stenosis Left circumflex: This is a large codominant vessel giving rise to a PDA distally and giving rise to 3 obtuse marginal branch. The left circumflex has mild intimal disease of 20 to 30% with no high-grade stenosis RCA: This vessel is chronically occluded at the ostium with no significant antegrade flow. There is large collaterals from the left coronary system through the apical LAD toward the PDA and the PLV. Left Ventriculogram: Not performed Hemodynamics: There was no gradient across aortic valve, LVEDP was 14-16 mmHg Conclusion: 1. Chronically occluded RCA with collateral from the left system 2. Patent stent in the proximal LAD with mild in-stent restenosis 3. Mild disease in the left circumflex 4. Normal LVEDP Recommendations: The patient presentations is related to ventricular tachycardia most likely related to his prior myocardial infarction and scarring. There is no evidence of significant obstructive disease at this point except a chronic occlusion of the RCA. I will maximize medical therapy and patient will be evaluated to undergo an ICD implantation. The findings and the recommendations were discussed with the patient and the family and they were in full understanding and agreement. Duration of sedation is 16 minutes.
[2024-04-03] MEDS: SODIUM CHLORIDE 0.9% 1,000 ML IV SCH (19:47)
[2024-04-03] MEDS: ALPRAZolam 0.25 MG TAB PO PRN (20:03)
[2024-04-03] MEDS: AMIODARONE 200 MG TAB PO SCH (20:03)
[2024-04-03] MEDS: METOPROLOL TARTRATE 50 MG TAB PO SCH (20:03)
[2024-04-04] MEDS: ONDANSETRON 4 MG/2 ML VIAL IVP PRN (00:30)
[2024-04-04] MEDS: HYDROcodone/APAP 7.5-325MG 1 EACH TAB PO PRN (00:30)
[2024-04-04 07:34] LABS: Mean Platelet Volume 7.2; Platelet Count 178 k/uL (150-450)
[2024-04-04 07:58] LABS: African American GFR (CKD) >90 (>60 ml/min/1.73 sqM); Anion Gap 9 mmol/L; Blood Urea Nitrogen 17 mg/dL (9-20); Calcium 8.9 mg/dL (8.4-10.2); Carbon Dioxide 18 mmol/L (22-30); Chloride 107 mmol/L (98-107); Glucose 125 mg/dL (74-99); Non-African American GFR(CKD) 90 (>60 ml/min/1.73 sqM); Potassium 4.1 mmol/L (3.5-5.1); Sodium 134 mmol/L (137-145)
--- NOTE | 2024-04-04 08:12 | P.PN ---
Subjective Progress Note Date: 04/04/24 Jameel Ferreira, is a 73-year-old male who presented to [facility] emergency room with a chief complaint of chest discomfort radiating to the middle of his back and shortness of breath. Patient stated that he had a myocardial infarction in 1992 followed by cardiac catheterization with matilda oplasty and stent placement, at that time. Patient states that few months ago he had cardiac catheterization, he had minimal disease without any need for angioplasty or stent placement. On presentation to emergency room heart rate was in the 200s, EKG revealed ventricular tachycardia, and patient underwent cardioversion, he was started on IV heparin, IV amiodarone, and cardiology consultation was requested He was evaluated in the emergency room vital examination on presentation revealed a temperature of 97.8 pulse 202 respiration 20 blood pressure 126/84 pulse ox 98% on room air Laboratory data revealed a white blood count of 11.6 hemoglobin 14.3 platelet count 268 BUN 31 creatinine 1.21 troponin level 0.22 Testing in the emergency room revealed EKG revealed ventricular tachycardia, chest x-ray revealed right middle lobe infiltrate. Patient was admitted to telemetry floor for further evaluation and treatment On 04/04/2024 patient was seen and examined on the telemetry floor he is alert and oriented x 3 in no apparent distress he denies any complaints at this time there is no fever or chills no headache or dizziness no chest pain no shortness of breath no cough no nausea or vomiting no abdominal pain no diarrhea and no urinary symptoms. Results of cardiac catheterization were discussed with the patient. At this time we are awaiting further recommendation from cardiology regarding ICD implantation. Objective - Vital Signs Vital signs: Vital Signs Temp 98.2 F 04/04/24 04:09 Pulse 73 04/04/24 07:34 Resp 16 04/04/24 07:34 BP 151/78 04/04/24 07:34 Pulse Ox 96 04/04/24 07:35 FiO2 Intake & Output 04/03/24 04/04/24 04/04/24 18:59 06:59 18:59 Intake Total 218 Output Total 250 Balance 218 -250 Weight 83.915 kg 86.8 kg Intake: IV 100 Oral 118 Output: Urine 250 Other: Voiding Method Toilet Urinal # Voids 1 - Exam In general patient is alert and oriented x 3 in no distress HEENT head normocephalic and atraumatic Neck is supple no JVD no goiter no lymphadenopathy no carotid bruit Chest examination is clear to auscultation no crackles no wheezing Cardiac exam reveals regular heart sounds S1 and S2 no gallops no murmurs Abdomen is soft nontender no organomegaly with normal bowel sounds Extremity exam reveals no edema no cyanosis or clubbing Neurological examination reveals no gross focal deficits - Labs CBC & Chem 7: 04/04/24 06:43 04/04/24 06:43 Labs: Abnormal Lab Results - Last 24 Hours (Table) 04/03/24 04/03/24 Range/Units 07:45 12:41 APTT 36.5 H (22.0-30.0) sec Troponin I 7.150 H* (0.000-0.034) ng/mL Assessment and Plan Plan: Chest pain and shortness of breath on presentation Elevated troponin levels Ventricular tachycardia in the emergency room with cardioversion Underlying history of hypertension Underlying history of hyperlipidemia Underlying history of diabetes mellitus Previous history of coronary artery disease with angioplasty and stent placement more than 30 years ago Right middle lobe infiltrate on chest x-ray At this time patient was seen and examined. Patient underwent cardioversion in the emergency room and was started on IV heparin and IV amiodarone He was seen by cardiology, and plan is to proceed with cardiac catheterization. Will add pulmonary consultation in regard to right middle lobe infiltrate Patient underwent cardiac catheterization on 04/03/2024, which revealed chronically occluded RCA with collaterals from the left system, patent stent in the proximal LAD with mild in-stent restenosis, and mild disease in the left circumflex, Recommendation from cardiology, they are to maximize medical management, and evaluate for ICD implantation in regard to presentation with ventricular tachycardia. Will follow closely
[2024-04-04] MEDS: ASPIRIN 81 MG PO SCH (08:20)
[2024-04-04] MEDS: LOSARTAN 25 MG TAB PO SCH (08:20)
[2024-04-04] MEDS: ATORVASTATIN 80 MG TAB PO SCH (08:20)
[2024-04-04] MEDS ORDERED: ASPIRIN 325 MG TAB PO SCH (09:00)
[2024-04-04 11:44] LABS: Basophils % (A) 0 %; Eosinophils # (A) 0.1 k/uL (0-0.7); Eosinophils % (A) 1 %; HCT 38.6 % (39.0-53.0); HGB 12.3 gm/dL (13.0-17.5); Hypochromasia Slight; Lymphocytes # (A) 0.6 k/uL (1.0-4.8); Lymphocytes % (A) 7 %; MCH 31.8 pg (25.0-35.0); MCHC 31.9 g/dL (31.0-37.0); MCV 99.6 fL (80.0-100.0); Monocytes # (A) 0.5 k/uL (0-1.0); Monocytes % (A) 6 %; Neutrophils # (A) 7.8 k/uL (1.3-7.7); Neutrophils % (A) 85 %; Platelet Count 214 k/uL (150-450); RBC 3.87 m/uL (4.30-5.90); RDW 13.2 % (11.5-15.5); WBC 9.1 k/uL (3.8-10.6)
[2024-04-04 11:58] LABS: INR 1.2 (<1.2); Partial Thromboplastin Time 28.3 sec (22.0-30.0); Prothrombin Time 12.8 sec (10.0-12.5)
--- NOTE | 2024-04-04 12:13 | P.PN ---
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 He has a known history of CAD status post stenting in the s, underwent cardiac catheterization according to him few months ago and no intervention was needed with mild to moderate disease, detail of his workup is unavailable. He had a prior history of myocardial infarction prior to the stenting. On presentation he was tachycardic with a rate in the 200 and his EKG was consistent with ventri cular tachycardia. He was given initially adenosine and subsequently amiodarone without change and subsequently underwent cardioversion with yazidism of sinus mechanism. He is doing well this morning, he denies any chest discomfort, his breathing is stable. He denies any dizziness or palpitat ions. He has a prior history of paroxysmal atrial fibrillation and has been anticoagulated. He has no significant peripheral edema, no PND or orthopnea. He is unaware of his ejection fraction but does not carry the diagnosis of CHF or cardiomyopathy. His lab data showed a troponin elevated up to 7.1, his EKG is consistent with anterior wall myocardial infarction. His clearance factors are positive for hypertension, hyperlipidemia, diabetes, he smokes marijuana. Medications: Metformin, Lopid, Tenormin 25 mg daily, losartan 25 mg daily, Lipitor 40 mg daily, Eliquis 5 mg twice a day 04/04/2024 Patient is status post cardiac catheterization yesterday with Dr. López revealing chronically occluded RCA with collaterals from the left system, patent stent in the proximal LAD with mild in-stent restenosis, mild disease in the left circumflex and normal LVEDP. Patient examined this morning at the bedside. Patient currently denies chest pain or pressure. He denies shortness of breath. Telemetry reveals sinus mechanism. Patient's blood pressure elevated this morning with a reading of 151/78. PHYSICAL EXAM: VITAL SIGNS: Reviewed. GENERAL: Well-developed in no acute distress. NECK: Supple. No JVD or thyromegaly LUNGS: Respirations even and unlabored. Lungs essentially clear to auscultation bilaterally. HEART: Regular rate and rhythm. S1 and S2 heard. Systolic murmur noted. EXTREMITIES: Normal range of motion. No clubbing or cyanosis. Peripheral pulses intact. No lower extremity edema ASSESSMENT: Ventricular tachycardia, status post cardioversion, maintaining sinus mechanism, likely secondary to prior myocardial infarction and scarring Status post cardiac catheterization revealing chronically occluded RCA with collaterals from the left system, patent stent in the proximal LAD with mild in- stent restenosis, mild disease in the left circumflex and normal LVEDP Elevated troponins secondary to myocardial injury from ventricular tachycardia Coronary artery disease with previous stenting of the LAD Paroxysmal atrial fibrillation Hypertension Hyperlipidemia Diabetes PLAN: Still awaiting records from [facility] Continue current cardiac medications Continue oral amiodarone 400 mg twice a day Consult Dr. Beyer, air export logistics manager, for ICD implantation Continue IV heparin. Eliquis remains on hold pending EP consultation Increase losartan to 50 mg daily for optimal blood pressure control Continue telemetry monitoring Further recommendations pending patient course Nurse practitioner note has been reviewed by physician. Signing provider agrees with the documented findings, assessment, and plan of care documented by COMPLAINT INVESTIGATIONS OFFICER as a scribe. Objective - Vital Signs Vital signs: Vital Signs Temp 98.2 F 04/04/24 04:09 Pulse 69 04/04/24 11:10 Resp 16 04/04/24 11:10 BP 115/66 04/04/24 11:10 Pulse Ox 96 04/04/24 11:10 FiO2 Intake & Output 04/03/24 04/04/24 04/04/24 18:59 06:59 18:59 Intake Total 218 0 Output Total 250 Balance 218 -250 0 Weight 83.915 kg 86.8 kg Intake: IV 100 Oral 118 0 Output: Urine 250 Other: Voiding Method Toilet Urinal # Voids 1 - Labs CBC & Chem 7: 04/04/24 11:11 04/04/24 06:43 Labs: Abnormal Lab Results - Last 24 Hours (Table) 04/03/24 04/04/24 04/04/24 Range/Units 12:41 06:43 11:11 RBC 3.87 L (4.30-5.90) m/uL Hgb 12.3 L (13.0-17.5) gm/dL Hct 38.6 L (39.0-53.0) % Neutrophils # 7.8 H (1.3-7.7) k/uL Lymphocytes # 0.6 L (1.0-4.8) k/uL PT (10.0-12.5) sec INR (<1.2) APTT 36.5 H (22.0-30.0) sec Sodium 134 L (137-145) mmol/L Carbon Dioxide 18 L (22-30) mmol/L Glucose 125 H (74-99) mg/dL 04/04/24 Range/Units 11:11 RBC (4.30-5.90) m/uL Hgb (13.0-17.5) gm/dL Hct (39.0-53.0) % Neutrophils # (1.3-7.7) k/uL Lymphocytes # (1.0-4.8) k/uL PT 12.8 H (10.0-12.5) sec INR 1.2 H (<1.2) APTT (22.0-30.0) sec Sodium (137-145) mmol/L Carbon Dioxide (22-30) mmol/L Glucose (74-99) mg/dL
[2024-04-04] MEDS: HEPARIN SOD,PORK IN 0.45% NACL 25,000 UNIT in 0.45% NACL 1 250ML.BAG IV SCH (12:46)
[2024-04-04] MEDS: HEPARIN SODIUM 1,000 UN/ML (10ML VL) IV ONE (12:52)
--- NOTE | 2024-04-04 13:19 | P.CNPUL ---
History of Present Illness Consult date: 04/04/24 Reason for consult: abnormal CXR/CT History of present illness: This is a 73-year-old male patient who is being seen in consultation for abnormal chest x-ray that showed pulmonary filtration involving the right lung and the patient became slightly hypoxic and he is currently on 2 L of oxygen by nasal cannula with pulse ox of 96%. I reviewed the records and also discussed the case with cardiology. In summary, the patient presented to the hospital because of chest discomfort and back pain and the patient subsequently went into ventricular tachycardia. The EKG showed sinus mechanism initially with an anterior wall myocardial infarction and the patient also had elevated troponin level and echocardiogram showed anteroapical and anteroseptal akinesis. The patient has undergone coronary stenting more than 20 years ago. At that point, the patient was taken to cardiac catheterization and the patient was found to have chronically occluded RCA with collaterals from the left. The patient has a patent stent in the proximal LAD with mild in stent restenosis and mild disease involving the circumflex and normal left ventricular diastolic pressure. The patient was told to have ventricular tachycardia related to previous myocardial infarction and scarring. Based on that, recommendations were made for an AICD placement. The patient also has cardiomyopathy and is echocardiogram that was done on 03/26/2024 showed evidence of impaired LV function with an ejection fraction of 35 to 40% and segmental wall motion abnormalities and moderately impaired ventricular systolic function. No other significant valvular abnormalities. The patient had mild to moderate MR and mild aortic stenosis and mild aortic regurgitation. At this point in time, the patient remains on IV heparin. Remains on amiodarone 4 mg p.o. twice a day. Remains on metoprolol 50 mg twice a day. Free of any chest pain. Hemodynamically stable. I reviewed the chest x-ray that was done on this patient on 03/26/2024 and the patient was found to have increased interstitial markings probably some asymmetric pulmonary edema. No clear indication for bacterial pneumonia and a follow-up chest x-ray is accordingly recommended. Review of Systems Constitutional: Denies chills, Denies fever Eyes: denies as per HPI, denies blurred vision, denies bulging eye, denies decreased vision, denies diplopia, denies discharge, denies dry eye, denies irritation, denies itching, denies pain, denies photophobia, denies loss of peripheral vision, denies loss of vision, denies tunnel vision/blind spots Ears: deny: decreased hearing, ear discharge, earache, tinnitus Ears, nose, mouth and throat: Reports as per HPI Breasts: absent: as per HPI, gynecomastia Cardiovascular: Reports chest pain, Reports decreased exercise tolerance, Reports dyspnea on exertion Respiratory: Reports dyspnea Gastrointestinal: Reports as per HPI Musculoskeletal: Reports as per HPI Musculoskeletal: absent: ankle pain, ankle stiffness, ankle swelling, as per HPI, elbow pain, elbow stiffness, elbow swelling, foot pain, foot stiffness, foot swelling, hand pain, hand stiffness, hand swelling, hip pain, hip stiffness, hip swelling, knee pain, knee stiffness, knee swelling, shoulder pain, shoulder stiffness, shoulder swelling, wrist pain, wrist stiffness, wrist swelling Integumentary: Reports as per HPI Neurological: Reports as per HPI Psychiatric: Reports as per HPI Endocrine: Reports as per HPI Past Medical History Past Medical History: Atrial Fibrillation, Coronary Artery Disease (CAD), Diabetes Mellitus, Hyperlipidemia, Hypertension, Myocardial Infarction (ID) Additional Past Medical History / Comment(s): GOUT Last Myocardial Infarction Date:: 1990 History of Any Multi-Drug Resistant Organisms: None Reported Past Surgical History: Heart Catheterization, Heart Catheterization With Stent Additional Past Surgical History / Comment(s): heart cath cataract Past Anesthesia/Blood Transfusion Reactions: Motion Sickness Date of Last Stent Placement:: 08/02/02 Past Psychological History: No Psychological Hx Reported Smoking Status: Never smoker Past Alcohol Use History: Occasional Past Drug Use History: Marijuana Additional Drug Use History / Comment(s): HAS MEDICAL CARD - Past Family History Mother Family Medical History: Cancer Medications and Allergies Home Medications Medication Instructions Recorded Confirmed Type Atorvastatin [Lipitor] 40 mg PO HS 03/30/15 04/03/24 History metFORMIN HCL [Glucophage] 500 mg PO AC-BID 03/30/15 04/03/24 History Apixaban [Eliquis] 5 mg PO BID 04/03/24 04/03/24 History Losartan [Cozaar] 25 mg PO HS 04/03/24 04/03/24 History atenoloL [Tenormin] 25 mg PO DAILY 04/03/24 04/03/24 History gemfibroziL [Lopid] 600 mg PO AC-BID 04/03/24 04/03/24 History Allergies Allergy/AdvReac Type Severity Reaction Status Date / Time No Known Allergies Allergy Verified 04/03/24 09:37 Physical Exam Vitals: Vital Signs Temp Pulse Pulse Pulse Resp BP BP 04/04/24 11:10 69 16 115/66 04/04/24 07:35 04/04/24 07:34 73 16 151/78 04/04/24 05:19 149/78 04/04/24 04:09 98.2 F 71 17 170/95 04/04/24 00:54 04/03/24 23:35 98.6 F 76 17 158/93 04/03/24 19:34 99.1 F 95 17 131/84 04/03/24 18:00 74 16 138/76 04/03/24 17:25 74 16 138/76 04/03/24 17:06 97.8 F 65 16 129/74 04/03/24 16:30 72 16 125/65 04/03/24 16:00 76 16 126/66 04/03/24 15:45 77 16 135/69 04/03/24 15:30 68 16 128/68 04/03/24 15:15 69 16 128/64 04/03/24 15:00 97.8 F 65 16 129/74 04/03/24 14:04 65 16 135/78 Pulse Ox 04/04/24 11:10 96 04/04/24 07:35 96 04/04/24 07:34 96 04/04/24 05:19 04/04/24 04:09 94 L 04/04/24 00:54 93 L 04/03/24 23:35 92 L 04/03/24 19:34 86 L 04/03/24 18:00 92 L 04/03/24 17:25 92 L 04/03/24 17:06 92 L 04/03/24 16:30 92 L 04/03/24 16:00 91 L 04/03/24 15:45 92 L 04/03/24 15:30 93 L 04/03/24 15:15 92 L 04/03/24 15:00 92 L 04/03/24 14:04 98 Intake and Output 04/03/24 04/04/24 04/04/24 22:59 06:59 14:59 Intake Total 118 120 Output Total 250 Balance 118 -250 120 Intake: Oral 118 120 Output: Urine 250 Other: Voiding Method Toilet Toilet Urinal Urinal # Voids 1 Weight 83.915 kg 86.8 kg The patient appeared well nourished and normally developed. Vital signs as documented. Head exam is unremarkable. No scleral icterus or corneal arcus noted. Neck is without jugular venous distension, thyromegaly, or carotid bruits. Carotid upstrokes are brisk bilaterally. Lungs are clear to auscultation and percussion. Cardiac exam reveals the PMI to be normally sized and situated. Rhythm is regular. First and second heart sounds normal. No murmurs, rubs or gallops. Abdominal exam reveals normal bowel sounds, no masses, no organomegaly and no aortic enlargement. Extremities are nonedematous and both femoral and pedal pulses are normal. Examination of the skin revealed no evidence of significant rashes, suspicious appearing nevi or other concerning lesions. Neurologically, the patient is awake and alert and the patient does not have any focal neurological deficit. Cranial nerves are essentially intact. Results - Laboratory Findings CBC and BMP: 04/04/24 11:11 04/04/24 06:43 PT/INR, D-dimer PT 12.8 sec (10.0-12.5) H 04/04/24 11:11 INR 1.2 (<1.2) H 04/04/24 11:11 Abnormal lab findings: Abnormal Labs 04/02/24 04/02/24 04/02/24 22:36 22:36 22:36 WBC 11.6 H RBC Hgb Hct Neutrophils # 9.9 H Lymphocytes # 0.9 L PT INR 1.2 H APTT Sodium Carbon Dioxide BUN 31 H Glucose 191 H Troponin I Urine Protein 04/02/24 04/03/24 04/03/24 22:36 03:49 03:55 WBC RBC Hgb Hct Neutrophils # Lymphocytes # PT INR APTT 94.5 H Sodium Carbon Dioxide BUN Glucose Troponin I 0.222 H* Urine Protein Trace H 04/03/24 04/03/24 04/03/24 03:55 07:45 12:41 WBC RBC Hgb Hct Neutrophils # Lymphocytes # PT INR APTT 36.5 H Sodium Carbon Dioxide BUN Glucose Troponin I 4.230 H* 7.150 H* Urine Protein 04/04/24 04/04/24 04/04/24 06:43 11:11 11:11 WBC RBC 3.87 L Hgb 12.3 L Hct 38.6 L Neutrophils # 7.8 H Lymphocytes # 0.6 L PT 12.8 H INR 1.2 H APTT Sodium 134 L Carbon Dioxide 18 L BUN Glucose 125 H Troponin I Urine Protein - Diagnostic Findings Chest x-ray: image reviewed Assessment and Plan Plan: Acute hypoxic respiratory failure currently on 2 L of oxygen by nasal cannula. Chest x-ray is consistent with some increased interstitial infiltrates right more than left, consider asymmetric pulmonary edema and follow-up chest x-ray is recommended Symptomatic coronary artery disease,vrecent cardiac catheterization indicating chronically occluded RCA with collaterals from the left along with a patent stent in the LAD and normal left-ventricular diastolic pressure Chronic systolic heart failure with ejection fraction of 35% Ventricular tachycardia status post cardioversion and current heart rate is sinus mechanism and the patient is currently on a combination of metoprolol and amiodarone. 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 Titrate oxygen flow to maintain saturation above 90%, currently on 2 L Continue metoprolol and amiodarone Continue IV heparin EP consultation and consideration for AICD placement Will continue to follow.
[2024-04-04 16:34] LABS: LDL Cholesterol,Calculated 72.7 mg/dL (0.0-131.0); VLDL Calculation 18.64 mg/dL (5.00-40.00)
[2024-04-04] MEDS: TRIAMCINOLONE 0.1% CREAM 80 GM TUBE TOPICAL SCH (20:09)
[2024-04-04] MEDS: DOCUSATE 100 MG CAP PO SCH (20:09)
[2024-04-05 02:40] LABS: Basophils % (A) 0 %; Eosinophils # (A) 0.1 k/uL (0-0.7); Eosinophils % (A) 2 %; HCT 35.2 % (39.0-53.0); HGB 11.7 gm/dL (13.0-17.5); Lymphocytes # (A) 0.7 k/uL (1.0-4.8); Lymphocytes % (A) 10 %; MCHC 33.2 g/dL (31.0-37.0); MCV 96.4 fL (80.0-100.0); Mean Platelet Volume 7.3; Monocytes # (A) 0.5 k/uL (0-1.0); Monocytes % (A) 8 %; Neutrophils # (A) 5.4 k/uL (1.3-7.7); Neutrophils % (A) 79 %; Platelet Count 179 k/uL (150-450); RBC 3.66 m/uL (4.30-5.90); RDW 13.5 % (11.5-15.5); WBC 6.8 k/uL (3.8-10.6)
[2024-04-05 02:45] LABS: INR 1.2 (<1.2); Prothrombin Time 12.7 sec (10.0-12.5)
[2024-04-05 03:12] LABS: ALT 14 U/L (4-49); AST 39 U/L (17-59); African American GFR (CKD) >90 (>60 ml/min/1.73 sqM); Albumin 3.4 g/dL (3.5-5.0); Alkaline Phosphatase 58 U/L (38-126); Anion Gap 6 mmol/L; Blood Urea Nitrogen 16 mg/dL (9-20); Carbon Dioxide 20 mmol/L (22-30); Chloride 108 mmol/L (98-107); Glucose 119 mg/dL (74-99); Non-African American GFR(CKD) >90 (>60 ml/min/1.73 sqM); Sodium 134 mmol/L (137-145); Total Bilirubin 1.3 mg/dL (0.2-1.3); Total Protein 5.8 g/dL (6.3-8.2)
[2024-04-05] MEDS: HEPARIN SODIUM 1,000 UN/ML (10ML VL) IV PRN (03:28)
[2024-04-05] MEDS: LOSARTAN 50 MG TAB PO SCH (08:41)
[2024-04-05 09:15] LABS: Basophils % (A) 0 %; Eosinophils # (A) 0.2 k/uL (0-0.7); Eosinophils % (A) 3 %; HCT 36.1 % (39.0-53.0); HGB 11.9 gm/dL (13.0-17.5); Lymphocytes # (A) 0.8 k/uL (1.0-4.8); Lymphocytes % (A) 10 %; MCHC 33.1 g/dL (31.0-37.0); MCV 96.8 fL (80.0-100.0); Mean Platelet Volume 7.4; Monocytes # (A) 0.5 k/uL (0-1.0); Monocytes % (A) 6 %; Neutrophils # (A) 6.2 k/uL (1.3-7.7); Neutrophils % (A) 80 %; Platelet Count 196 k/uL (150-450); RBC 3.73 m/uL (4.30-5.90); RDW 13.4 % (11.5-15.5); WBC 7.8 k/uL (3.8-10.6)
--- NOTE | 2024-04-05 12:10 | P.PN ---
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 He has a known history of CAD status post stenting in the s, underwent cardiac catheterization according to him few months ago and no intervention was needed with mild to moderate disease, detail of his workup is unavailable. He had a prior history of myocardial infarction prior to the stenting. On presentation he was tachycardic with a rate in the 200 and his EKG was consistent with ventricular tachycardia. He was given initially adenosine and subsequently amiodarone without change and subsequently underwent cardioversion with religion of sinus mechanism. He is doing well this morning, he denies any chest discomfort, his breathing is stable. He denies any dizziness or palpitations. He has a prior history of paroxysmal atrial fibrillation and has been anticoagulated. He has no significant peripheral edema, no PND or orthopnea. He is unaware of his ejection fraction but does not carry the diagnosis of CHF or cardiomyopathy. His lab data showed a troponin elevated up to 7.1, his EKG is consistent with anterior wall myocardial infarction. His clearance factors are positive for hypertension, hyperlipidemia, diabetes, he smokes marijuana. Medications: Metformin, Lopid, Tenormin 25 mg daily, losartan 25 mg daily, Lipitor 40 mg daily, Eliquis 5 mg twice a day 04/04/2024 Patient is status post cardiac catheterization yesterday with Dr. López revealing chronically occluded RCA with collaterals from the left system, patent stent in the proximal LAD with mild in-stent restenosis, mild disease in the left circumflex and normal LVEDP. Patient examined this morning at the bedside. Patient currently denies chest pain or pressure. He denies shortness of breath. Telemetry reveals sinus mechanism. Patient's blood pressure elevated this morning with a reading of 151/78. 04/05/24 Patient seen and examined. Denies any chest pain or pressure. He is sitting up at bedside chair and reports feeling better today. Telemetry shows A-fib, rate controlled. Blood pressure is better controlled today. No shortness of breath. Awaiting EP eval. PHYSICAL EXAM: VITAL SIGNS: Reviewed. GENERAL: Well-developed in no acute distress. NECK: Supple. No JVD LUNGS: Respirations even and unlabored. Lungs essentially clear to auscultation bilaterally. HEART: Irregular rate and rhythm. S1 and S2 heard. Systolic murmur noted. EXTREMITIES: Normal range of motion. No clubbing or cyanosis. Peripheral pulses intact. No lower extremity edema ASSESSMENT: Ventricular tachycardia, status post cardioversion, maintaining sinus mechanism, likely secondary to prior myocardial infarction and scarring Status post cardiac catheterization revealing chronically occluded RCA with collaterals from the left system, patent stent in the proximal LAD with mild in- stent restenosis, mild disease in the left circumflex and normal LVEDP Elevated troponins secondary to myocardial injury from ventricular tachycardia Coronary artery disease with previous stenting of the LAD Paroxysmal atrial fibrillation Hypertension Hyperlipidemia Diabetes PLAN: Continue current cardiac medications. Continue oral amiodarone 400 mg twice a day. Consult Dr. Beyer, manager [employer], for ICD implantation- PENDING. Continue IV heparin; Eliquis remains on hold pending EP consultation and timing of AICD implantation. Blood pressure is better controlled. Continue telemetry monitoring. Further recommendations pending patient course. Nurse practitioner note has been reviewed by physician. Signing provider agrees with the documented findings, assessment, and plan of care documented by STATISTICAL MACHINE MECHANIC as a scribe. Objective - Vital Signs Vital signs: Vital Signs Temp 98.0 F 04/05/24 03:48 Pulse 64 04/05/24 03:48 Resp 16 04/05/24 03:48 BP 115/80 04/05/24 03:48 Pulse Ox 96 04/05/24 07:55 FiO2 Intake & Output 04/04/24 04/05/24 04/05/24 18:59 06:59 18:59 Intake Total 240 145.333 Output Total 300 650 Balance -60 -504.667 Weight 85.3 kg Intake: Intake, IV Titration 145.333 Amount Heparin Sod,Pork in 0.45% 145.333 NaCl 25,000 unit In 0.45 % NaCl 1 250ml.bag @ 11. 521 UNITS/KG/HR 10 mls/hr IV .Q24H [facility] Rx#: [id number] Oral 240 Output: Urine 300 650 Other: Voiding Method Toilet Urinal # Voids 1 - Labs CBC & Chem 7: 04/05/24 08:52 04/05/24 02:24 Labs: Abnormal Lab Results - Last 24 Hours (Table) 04/04/24 04/04/24 04/04/24 Range/Units 06:43 11:11 11:11 RBC 3.87 L (4.30-5.90) m/uL Hgb 12.3 L (13.0-17.5) gm/dL Hct 38.6 L (39.0-53.0) % Neutrophils # 7.8 H (1.3-7.7) k/uL Lymphocytes # 0.6 L (1.0-4.8) k/uL PT 12.8 H (10.0-12.5) sec INR 1.2 H (<1.2) APTT (22.0-30.0) sec Sodium (137-145) mmol/L Chloride (98-107) mmol/L Carbon Dioxide (22-30) mmol/L Glucose (74-99) mg/dL Total Protein (6.3-8.2) g/dL Albumin (3.5-5.0) g/dL HDL Cholesterol 39.70 L (40.00-60.00) mg/dL 04/04/24 04/05/24 04/05/24 Range/Units 19:16 02:24 02:24 RBC 3.66 L (4.30-5.90) m/uL Hgb 11.7 L (13.0-17.5) gm/dL Hct 35.2 L (39.0-53.0) % Neutrophils # (1.3-7.7) k/uL Lymphocytes # 0.7 L (1.0-4.8) k/uL PT 12.7 H (10.0-12.5) sec INR 1.2 H (<1.2) APTT 43.4 H (22.0-30.0) sec Sodium (137-145) mmol/L Chloride (98-107) mmol/L Carbon Dioxide (22-30) mmol/L Glucose (74-99) mg/dL Total Protein (6.3-8.2) g/dL Albumin (3.5-5.0) g/dL HDL Cholesterol (40.00-60.00) mg/dL 04/05/24 04/05/24 04/05/24 Range/Units 02:24 02:24 08:52 RBC 3.73 L (4.30-5.90) m/uL Hgb 11.9 L (13.0-17.5) gm/dL Hct 36.1 L (39.0-53.0) % Neutrophils # (1.3-7.7) k/uL Lymphocytes # 0.8 L (1.0-4.8) k/uL PT (10.0-12.5) sec INR (<1.2) APTT 40.3 H (22.0-30.0) sec Sodium 134 L (137-145) mmol/L Chloride 108 H (98-107) mmol/L Carbon Dioxide 20 L (22-30) mmol/L Glucose 119 H (74-99) mg/dL Total Protein 5.8 L (6.3-8.2) g/dL Albumin 3.4 L (3.5-5.0) g/dL HDL Cholesterol (40.00-60.00) mg/dL 04/05/24 Range/Units 08:52 RBC (4.30-5.90) m/uL Hgb (13.0-17.5) gm/dL Hct (39.0-53.0) % Neutrophils # (1.3-7.7) k/uL Lymphocytes # (1.0-4.8) k/uL PT (10.0-12.5) sec INR (<1.2) APTT 47.8 H (22.0-30.0) sec Sodium (137-145) mmol/L Chloride (98-107) mmol/L Carbon Dioxide (22-30) mmol/L Glucose (74-99) mg/dL Total Protein (6.3-8.2) g/dL Albumin (3.5-5.0) g/dL HDL Cholesterol (40.00-60.00) mg/dL
--- NOTE | 2024-04-05 15:20 | P.PN ---
Subjective Progress Note Date: 04/05/24 Jameel Ferreira, is a 73-year-old male who presented to [facility] emergency room with a chief complaint of chest discomfort radiating to the middle of his back and shortness of breath. Patient stated that he had a myocardial infarction in 1992 followed by cardiac catheterization with matilda oplasty and stent placement, at that time. Patient states that few months ago he had cardiac catheterization, he had minimal disease without any need for angioplasty or stent placement. On presentation to emergency room heart rate was in the 200s, EKG revealed ventricular tachycardia, and patient underwent cardioversion, he was started on IV heparin, IV amiodarone, and cardiology consultation was requested He was evaluated in the emergency room vital examination on presentation revealed a temperature of 97.8 pulse 202 respiration 20 blood pressure 126/84 pulse ox 98% on room air Laboratory data revealed a white blood count of 11.6 hemoglobin 14.3 platelet count 268 BUN 31 creatinine 1.21 troponin level 0.22 Testing in the emergency room revealed EKG revealed ventricular tachycardia, chest x-ray revealed right middle lobe infiltrate. Patient was admitted to telemetry floor for further evaluation and treatment On 04/04/2024 patient was seen and examined on the telemetry floor he is alert and oriented x 3 in no apparent distress he denies any complaints at this time there is no fever or chills no headache or dizziness no chest pain no shortness of breath no cough no nausea or vomiting no abdominal pain no diarrhea and no urinary symptoms. Results of cardiac catheterization were discussed with the patient. At this time we are awaiting further recommendation from cardiology regarding ICD implantation. On 04/05/2024 patient was seen and examined on the telemetry floor he is alert and oriented x 3 in no apparent distress there is no fever or chills no headache or dizziness no chest pain no shortness of breath no cough no nausea or vomiting no abdominal pain no diarrhea and no urinary symptoms at this time we are awaiting further recommendation from cardiology in regard to ICD placement. Objective - Vital Signs Vital signs: Vital Signs Temp 98.0 F 04/05/24 03:48 Pulse 64 04/05/24 03:48 Resp 16 04/05/24 03:48 BP 115/80 04/05/24 03:48 Pulse Ox 96 04/05/24 07:55 FiO2 Intake & Output 04/04/24 04/05/24 04/05/24 18:59 06:59 18:59 Intake Total 240 145.333 Output Total 300 650 Balance -60 -504.667 Weight 85.3 kg Intake: Intake, IV Titration 145.333 Amount Heparin Sod,Pork in 0.45% 145.333 NaCl 25,000 unit In 0.45 % NaCl 1 250ml.bag @ 11. 521 UNITS/KG/HR 10 mls/hr IV .Q24H [facility] Rx#: [id number] Oral 240 Output: Urine 300 650 Other: Voiding Method Toilet Urinal # Voids 1 - Exam In general patient is alert and oriented x 3 in no distress HEENT head normocephalic and atraumatic Neck is supple no JVD no goiter no lymphadenopathy no carotid bruit Chest examination is clear to auscultation no crackles no wheezing Cardiac exam reveals regular heart sounds S1 and S2 no gallops no murmurs Abdomen is soft nontender no organomegaly with normal bowel sounds Extremity exam reveals no edema no cyanosis or clubbing Neurological examination reveals no gross focal deficits - Labs CBC & Chem 7: 04/05/24 08:52 04/05/24 02:24 Labs: Abnormal Lab Results - Last 24 Hours (Table) 04/04/24 04/04/24 04/04/24 Range/Units 06:43 11:11 11:11 RBC 3.87 L (4.30-5.90) m/uL Hgb 12.3 L (13.0-17.5) gm/dL Hct 38.6 L (39.0-53.0) % Neutrophils # 7.8 H (1.3-7.7) k/uL Lymphocytes # 0.6 L (1.0-4.8) k/uL PT 12.8 H (10.0-12.5) sec INR 1.2 H (<1.2) APTT (22.0-30.0) sec Sodium (137-145) mmol/L Chloride (98-107) mmol/L Carbon Dioxide (22-30) mmol/L Glucose (74-99) mg/dL Total Protein (6.3-8.2) g/dL Albumin (3.5-5.0) g/dL HDL Cholesterol 39.70 L (40.00-60.00) mg/dL 04/04/24 04/05/2424 Range/Units 19:16 02:24 02:24 RBC 3.66 L (4.30-5.90) m/uL Hgb 11.7 L (13.0-17.5) gm/dL Hct 35.2 L (39.0-53.0) % Neutrophils # (1.3-7.7) k/uL Lymphocytes # 0.7 L (1.0-4.8) k/uL PT 12.7 H (10.0-12.5) sec INR 1.2 H (<1.2) APTT 43.4 H (22.0-30.0) sec Sodium (137-145) mmol/L Chloride (98-107) mmol/L Carbon Dioxide (22-30) mmol/L Glucose (74-99) mg/dL Total Protein (6.3-8.2) g/dL Albumin (3.5-5.0) g/dL HDL Cholesterol (40.00-60.00) mg/dL 04/05/24 04/05/24 04/05/24 Range/Units 02:24 02:24 08:52 RBC 3.73 L (4.30-5.90) m/uL Hgb 11.9 L (13.0-17.5) gm/dL Hct 36.1 L (39.0-53.0) % Neutrophils # (1.3-7.7) k/uL Lymphocytes # 0.8 L (1.0-4.8) k/uL PT (10.0-12.5) sec INR (<1.2) APTT 40.3 H (22.0-30.0) sec Sodium 134 L (137-145) mmol/L Chloride 108 H (98-107) mmol/L Carbon Dioxide 20 L (22-30) mmol/L Glucose 119 H (74-99) mg/dL Total Protein 5.8 L (6.3-8.2) g/dL Albumin 3.4 L (3.5-5.0) g/dL HDL Cholesterol (40.00-60.00) mg/dL Assessment and Plan Plan: Chest pain and shortness of breath on presentation Elevated troponin levels Ventricular tachycardia in the emergency room with cardioversion Underlying history of hypertension Underlying history of hyperlipidemia Underlying history of diabetes mellitus Previous history of coronary artery disease with angioplasty and stent placement more than 30 years ago Right middle lobe infiltrate on chest x-ray At this time patient was seen and examined. Patient underwent cardioversion in the emergency room and was started on IV heparin and IV amiodarone He was seen by cardiology, and plan is to proceed with cardiac catheterization. Will add pulmonary consultation in regard to right middle lobe infiltrate Patient underwent cardiac catheterization on 04/03/2024, which revealed chronically occluded RCA with collaterals from the left system, patent stent in the proximal LAD with mild in-stent restenosis, and mild disease in the left circumflex, Recommendation from cardiology, they are to maximize medical management, and evaluate for ICD implantation in regard to presentation with ventricular tachycardia. Will follow closely
--- NOTE | 2024-04-05 17:35 | P.PN ---
Subjective Progress Note Date: 04/05/24 Principal diagnosis: Acute hypoxic respiratory failure, most likely secondary to asymmetric pulmonary edema. And chronic systolic congestive heart failure This is a 73-year-old male patient who is being seen in consultation for abnormal chest x-ray that showed pulmonary filtration involving the right lung and the patient became slightly hypoxic and he is currently on 2 L of oxygen by nasal cannula with pulse ox of 96%. I reviewed the records and also discussed the case with cardiology. In summary, the patient presented to the hospital because of chest discomfort and back pain and the patient subsequently went into ventricular tachycardia. The EKG showed sinus mechanism initially with an anterior wall myocardial infarction and the patient also had elevated troponin level and echocardiogram showed anteroapical and anteroseptal akinesis. The patient has undergone coronary stenting more than 20 years ago. At that point, the patient was taken to cardiac catheterization and the patient was found to have chronically occluded RCA with collaterals from the left. The patient has a patent stent in the proximal LAD with mild in stent restenosis and mild disease involving the circumflex and normal left ventricular diastolic pressure. The patient was told to have ventricular tachycardia related to previous myocardial infarction and scarring. Based on that, recommendations were made for an AICD placement. The patient also has cardiomyopathy and is echocardiogram that was done on 03/26/2024 showed evidence of impaired LV function with an ejection fraction of 35 to 40% and segmental wall motion abnormalities and moderately impaired ventricular systolic function. No other significant valvular abnormalities. The patient had mild to moderate MR and mild aortic stenosis and mild aortic regurgitation. At this point in time, the patient remains on IV heparin. Remains on amiodarone 4 mg p.o. twice a day. Remains on metoprolol 50 mg twice a day. Free of any chest pain. Hemodynamically stable. I reviewed the chest x-ray that was done on this patient on 03/26/2024 and the patient was found to have increased interstitial markings probably some asymmetric pulmonary edema. No clear indication for bacterial pneumonia and a follow-up chest x-ray is accordingly recommended. Patient was evaluated today on 04/05/24, feeling much better, hardly any pulmon josé miguel symptoms no cough no wheezing no shortness of breath, patient is on room air, does not seem to be in any distress.WBC count is 7.8 hemoglobin is 11.9 PTT is 47.8 electrolytes are normal renal profile is normal telemetry shows A-fib with controlled rate, patient is awaiting EP evaluationStatus post cardiac catheterization revealing chronically occluded RCA with collaterals from the left system, patent stent in the proximal LAD with mild in-stent restenosis, mild disease in the left circumflex and normal LVEDP Objective - Vital Signs Vital signs: Vital Signs Temp 99.4 F 04/05/24 12:00 Pulse 62 04/05/24 14:00 Resp 16 04/05/24 14:00 BP 113/70 04/05/24 12:00 Pulse Ox 96 04/05/24 12:00 FiO2 Intake & Output 04/04/24 04/05/24 04/05/24 18:59 06:59 18:59 Intake Total 240 145.333 208.758 Output Total 300 650 Balance -60 -504.667 208.758 Weight 85.3 kg Intake: Intake, IV Titration 145.333 90.758 Amount Heparin Sod,Pork in 0.45% 145.333 90.758 NaCl 25,000 unit In 0.45 % NaCl 1 250ml.bag @ 11. 521 UNITS/KG/HR 10 mls/hr IV .Q24H [facility] Rx#: [id number] Oral 240 118 Output: Urine 300 650 Other: Voiding Method Toilet Toilet Urinal Urinal # Voids 1 - Exam General: The patient is awake and alert, in no distress, and does not appear acutely ill. Skin: Skin is warm and dry and no rashes or lesions are noted. Eye: Pupils are equal, round and reactive to light, extra-ocular movements are intact; there is normal conjunctiva bilaterally. Ears, nose, mouth and throat: There are moist mucous membranes and no oral lesions. Neck: The neck is supple, there is no tenderness or JVD. Cardiovascular: Irregular rate and rhythm. S1 and S2 heard. Systolic murmur noted. Respiratory: Diminished breath sounds at the bases no crackles rhonchi or wheezes Gastrointestinal: Soft, non-distended, non-tender abdomen without masses or organomegaly noted. There is no rebound or guarding present. Bowel sounds are unremarkable. Back: There is no tenderness to palpation in the midline. There is no obvious deformity. Neurological: CN II-XII intact, Cranial nerves III through XII are intact. There are no obvious motor or sensory deficits. Coordination appears grossly intact. Speech is normal. Psychiatric: Cooperative, appropriate mood & affect, normal judgment. - Labs CBC & Chem 7: 04/05/24 08:52 04/05/24 02:24 Labs: Abnormal Lab Results - Last 24 Hours (Table) 04/04/24 04/05/24 04/05/24 Range/Units 19:16 02:24 02:24 RBC 3.66 L (4.30-5.90) m/uL Hgb 11.7 L (13.0-17.5) gm/dL Hct 35.2 L (39.0-53.0) % Lymphocytes # 0.7 L (1.0-4.8) k/uL PT 12.7 H (10.0-12.5) sec INR 1.2 H (<1.2) APTT 43.4 H (22.0-30.0) sec Sodium (137-145) mmol/L Chloride (98-107) mmol/L Carbon Dioxide (22-30) mmol/L Glucose (74-99) mg/dL Total Protein (6.3-8.2) g/dL Albumin (3.5-5.0) g/dL 04/05/24 04/05/24 04/05/24 Range/Units 02:24 02:24 08:52 RBC 3.73 L (4.30-5.90) m/uL Hgb 11.9 L (13.0-17.5) gm/dL Hct 36.1 L (39.0-53.0) % Lymphocytes # 0.8 L (1.0-4.8) k/uL PT (10.0-12.5) sec INR (<1.2) APTT 40.3 H (22.0-30.0) sec Sodium 134 L (137-145) mmol/L Chloride 108 H (98-107) mmol/L Carbon Dioxide 20 L (22-30) mmol/L Glucose 119 H (74-99) mg/dL Total Protein 5.8 L (6.3-8.2) g/dL Albumin 3.4 L (3.5-5.0) g/dL 04/05/24 Range/Units 08:52 RBC (4.30-5.90) m/uL Hgb (13.0-17.5) gm/dL Hct (39.0-53.0) % Lymphocytes # (1.0-4.8) k/uL PT (10.0-12.5) sec INR (<1.2) APTT 47.8 H (22.0-30.0) sec Sodium (137-145) mmol/L Chloride (98-107) mmol/L Carbon Dioxide (22-30) mmol/L Glucose (74-99) mg/dL Total Protein (6.3-8.2) g/dL Albumin (3.5-5.0) g/dL Assessment and Plan Assessment: Impression: Acute hypoxic respiratory failure, improved with treatment of his unilateral pulmonary edema patient is known to have history of chronic systolic congestive heart failure Symptomatic coronary artery disease,vrecent cardiac catheterization indicating chronically occluded RCA with collaterals from the left along with a patent stent in the LAD and normal left-ventricular diastolic pressure Chronic systolic heart failure with ejection fraction of 35% Ventricular tachycardia status post cardioversion and current heart rate is sinus mechanism and the patient is currently on a combination of metoprolol and amiodarone. Paroxysmal atrial fibrillation Hypertension Hyperlipidemia Diabetes mellitus Recommendation: Continue present supportive care measures Continue diuretics Continue IV heparin Patient will be evaluated for possible AICD placement Will continue to follow Repeat chest x-ray in the next 24 hours Time with Patient: Less than 30
[2024-04-05] MEDS: SODIUM CHLORIDE 0.9% 1,000 ML IV SCH ×2 (19:58→19:59)
--- NOTE | 2024-04-06 08:19 | XR ---
EXAMINATION TYPE: XR chest 1V portable DATE OF EXAM: 04/06/2024 HISTORY: Shortness of breath. COMPARISON: 04/03/2024 TECHNIQUE: Single view of the chest is submitted. FINDINGS: Demonstrated are scattered senescent parenchymal change. Much improved features of congestive failure with minimal residual pulmonary venous congestion and ri ght medial basilar infiltrate. The heart is mildly enlarged. Hilar and mediastinal structures are within normal limits. Degenerative changes are seen of the dorsal spine. IMPRESSION: 1. Much improved features of congestive failure with minimal residual pulmonary venous congestion an d right medial basilar infiltrate. The heart is mildly enlarged. [facility], , 04/06/2024 8:16 AM
--- NOTE | 2024-04-06 09:09 | P.PN ---
Subjective Progress Note Date: 04/06/24 Jameel Ferreira, is a 73-year-old male who presented to [facility] emergency room with a chief complaint of chest discomfort radiating to the middle of his back and shortness of breath. Patient stated that he had a myocardial infarction in 1992 followed by cardiac catheterization with angio plasty and stent placement, at that time. Patient states that few months ago he had cardiac catheterization, he had minimal disease without any need for angioplasty or stent placement. On presentation to emergency room heart rate was in the 200s, EKG revealed ventricular tachycardia, and patient underwent cardioversion, he was started on IV heparin, IV amiodarone, and cardiology consultation was requested He was evaluated in the emergency room vital examination on presentation revealed a temperature of 97.8 pulse 202 respiration 20 blood pressure 126/84 pulse ox 98% on room air Laboratory data revealed a white blood count of 11.6 hemoglobin 14.3 platelet count 268 BUN 31 creatinine 1.21 troponin level 0.22 Testing in the emergency room revealed EKG revealed ventricular tachycardia, chest x-ray revealed right middle lobe infiltrate. Patient was admitted to telemetry floor for further evaluation and treatment On 04/04/2024 patient was seen and examined on the telemetry floor he is alert and oriented x 3 in no apparent distress he denies any complaints at this time there is no fever or chills no headache or dizziness no chest pain no shortness of breath no cough no nausea or vomiting no abdominal pain no diarrhea and no urinary symptoms. Results of cardiac catheterization were discussed with the patient. At this time we are awaiting further recommendation from cardiology regarding ICD implantation. On 04/05/2024 patient was seen and examined on the telemetry floor he is alert and oriented x 3 in no apparent distress there is no fever or chills no headache or dizziness no chest pain no shortness of breath no cough no nausea or vomiting no abdominal pain no diarrhea and no urinary symptoms at this time we are awaiting further recommendation from cardiology in regard to ICD placement. On 04/06/2024 patient is alert and oriented x 3. Per patient plans today for AICD placement per cardiology. At this time patient denies chest pain or shortness of breath. Patient denies nausea vomiting or diarrhea. Patient denies any urinary burning or frequency. Patient remains on IV heparin. Current vital signs temp 98.5, heart rate 79, respiratory rate 16, blood pressure 152/82 with pulse ox 98% on room air Objective - Vital Signs Vital signs: Vital Signs Temp 98.5 F 04/06/24 08:00 Pulse 79 04/06/24 08:00 Resp 16 04/06/24 08:00 BP 152/82 04/06/24 08:00 Pulse Ox 98 04/06/24 08:00 FiO2 Intake & Output 04/05/24 04/06/24 04/06/24 18:59 06:59 18:59 Intake Total 326.758 251.542 Output Total 300 Balance 326.758 -300 251.542 Weight 85.7 kg Intake: Intake, IV Titration 90.758 251.542 Amount Heparin Sod,Pork in 0.45% 90.758 251.542 NaCl 25,000 unit In 0.45 % NaCl 1 250ml.bag @ 11. 521 UNITS/KG/HR 10 mls/hr IV .Q24H [facility] Rx#: [id number] Oral 236 Output: Urine 300 Other: Voiding Method Toilet Toilet Urinal Urinal # Voids 2 2 - Exam In general patient is alert and oriented x 3 in no distress HEENT head normocephalic and atraumatic Neck is supple no JVD no goiter no lymphadenopathy no carotid bruit Chest examination is clear to auscultation no crackles no wheezing Cardiac exam reveals regular heart sounds S1 and S2 no gallops no murmurs Abdomen is soft nontender no organomegaly with normal bowel sounds Extremity exam reveals no edema no cyanosis or clubbing Neurological examination reveals no gross focal deficits - Labs CBC & Chem 7: 04/05/24 08:52 04/05/24 02:24 Labs: Abnormal Lab Results - Last 24 Hours (Table) 04/05/24 04/05/24 04/06/24 Range/Units 08:52 08:52 08:00 RBC 3.73 L (4.30-5.90) m/uL Hgb 11.9 L (13.0-17.5) gm/dL Hct 36.1 L (39.0-53.0) % Lymphocytes # 0.8 L (1.0-4.8) k/uL APTT 47.8 H 35.1 H (22.0-30.0) sec Assessment and Plan Assessment: Chest pain and shortness of breath on presentation Elevated troponin levels Ventricular tachycardia in the emergency room with cardioversion Underlying history of hypertension Underlying history of hyperlipidemia Underlying history of diabetes mellitus Previous history of coronary artery disease with angioplasty and stent placement more than 30 years ago Right middle lobe infiltrate on chest x-ray At this time patient was seen and examined. Patient underwent cardioversion in the emergency room and was started on IV heparin and IV amiodarone He was seen by cardiology, and plan is to proceed with cardiac catheterization. Will add pulmonary consultation in regard to right middle lobe infiltrate Patient underwent cardiac catheterization on 04/03/2024, which revealed c hronically occluded RCA with collaterals from the left system, patent stent in the proximal LAD with mild in-stent restenosis, and mild disease in the left circumflex, Plans for AICD placement on 04/06/2024 per cardiology Will follow closely
[2024-04-06] MEDS ORDERED: VANCOMYCIN IV PER PHARMACY 1 EACH MISC MISCELLANE PRN (09:26)
[2024-04-06] MEDS: VANCOMYCIN 1,250 MG in SODIUM CHLORIDE 0.9% 250 ML IVPB ONE (10:29)
[2024-04-06] MEDS ORDERED: DAPAGLIFLOZIN PROPANEDIOL 10 MG TABLET PO SCH (10:30)
--- NOTE | 2024-04-06 12:42 | P.PN ---
Subjective HISTORY OF PRESENT ILLNESS: The patient is a 73-year-old male who is followed by lead former in [place] and presents to the hospital with symptoms of back discomfort, chest discomfort and dyspnea, reminding him of the way he felt prior to his PCI. He has a known history of CAD status post stenting in the s, underwent cardiac catheterization according to him few months ago and no intervention was needed with mild to moderate disease, detail of his workup is unavailable. He had a prior history of myocardial infarction prior to the stenting. On presentation he was tachycardic with a rate in the 200 and his EKG was consistent with ventri cular tachycardia. He was given initially adenosine and subsequently amiodarone without change and subsequently underwent cardioversion with rastafarian of sinus mechanism. He is doing well this morning, he denies any chest discomfort, his breathing is stable. He denies any dizziness or palpitat ions. He has a prior history of paroxysmal atrial fibrillation and has been anticoagulated. He has no significant peripheral edema, no PND or orthopnea. He is unaware of his ejection fraction but does not carry the diagnosis of CHF or cardiomyopathy. His lab data showed a troponin elevated up to 7.1, his EKG is consistent with anterior wall myocardial infarction. His clearance factors are positive for hypertension, hyperlipidemia, diabetes, he smokes marijuana. Medications: Metformin, Lopid, Tenormin 25 mg daily, losartan 25 mg daily, Lipitor 40 mg daily, Eliquis 5 mg twice a day 04/04/2024 Patient is status post cardiac catheterization yesterday with Dr. López revealing chronically occluded RCA with collaterals from the left system, patent stent in the proximal LAD with mild in-stent restenosis, mild disease in the left circumflex and normal LVEDP. Patient examined this morning at the bedside. Patient currently denies chest pain or pressure. He denies shortness of breath. Telemetry reveals sinus mechanism. Patient's blood pressure elevated this morning with a reading of 151/78. 04/06/2024 Patient examined at this morning at the bedside. Patient currently denies chest pain or pressure. He denies shortness of breath. Patient remains on IV heparin. He is scheduled to undergo ICD implantation today. PHYSICAL EXAM: VITAL SIGNS: Reviewed. GENERAL: Well-developed in no acute distress. NECK: Supple. No JVD or thyromegaly LUNGS: Respirations even and unlabored. Lungs essentially clear to auscultation bilaterally. HEART: Regular rate and rhythm. S1 and S2 heard. Systolic murmur noted. EXTREMITIES: Normal range of motion. No clubbing or cyanosis. Peripheral pu lses intact. No lower extremity edema ASSESSMENT: Ventricular tachycardia, status post cardioversion, maintaining sinus mechanism, likely secondary to prior myocardial infarction and scarring Status post cardiac catheterization revealing chronically occluded RCA with collaterals from the left system, patent stent in the proximal LAD with mild in- stent restenosis, mild disease in the left circumflex and normal LVEDP Elevated troponins secondary to myocardial injury from ventricular tachycardia Coronary artery disease with previous stenting of the LAD Paroxysmal atrial fibrillation Hypertension Hyperlipidemia Diabetes PLAN: Continue current cardiac medications Continue telemetry monitoring Continue IV heparin. Resume Eliquis after ICD implantation. Patient to undergo ICD implantation today with Dr. Beyer Further recommendations pending patient course Nurse practitioner note has been reviewed by physician. Signing provider agrees with the documented findings, assessment, and plan of care documented by DISABILITIES SERVICES OFFICER as a scribe. Objective - Vital Signs Vital signs: Vital Signs Temp 98.5 F 04/06/24 08:00 Pulse 79 04/06/24 08:00 Resp 16 04/06/24 08:00 BP 152/82 04/06/24 08:00 Pulse Ox 98 04/06/24 08:00 FiO2 Intake & Output 04/05/24 04/06/24 04/06/24 18:59 06:59 18:59 Intake Total 326.758 251.542 Output Total 300 Balance 326.758 -300 251.542 Weight 85.7 kg Intake: Intake, IV Titration 90.758 251.542 Amount Heparin Sod,Pork in 0.45% 90.758 251.542 NaCl 25,000 unit In 0.45 % NaCl 1 250ml.bag @ 11. 521 UNITS/KG/HR 10 mls/hr IV .Q24H [facility] Rx#: [id number] Oral 236 Output: Urine 300 Other: Voiding Method Toilet Toilet Urinal Urinal # Voids 2 2 - Labs CBC & Chem 7: 04/05/24 08:52 04/05/24 02:24 Labs: Abnormal Lab Results - Last 24 Hours (Table) 04/05/24 04/05/24 04/06/24 Range/Units 08:52 08:52 08:00 RBC 3.73 L (4.30-5.90) m/uL Hgb 11.9 L (13.0-17.5) gm/dL Hct 36.1 L (39.0-53.0) % Lymphocytes # 0.8 L (1.0-4.8) k/uL APTT 47.8 H 35.1 H (22.0-30.0) sec
--- NOTE | 2024-04-06 15:26 | P.PN ---
Subjective Progress Note Date: 04/06/24 Principal diagnosis: Acute hypoxic respiratory failure, most likely secondary to asymmetric pulmonary edema. And chronic systolic congestive heart failure This is a 73-year-old male patient who is being seen in consultation for abnormal chest x-ray that showed pulmonary filtration involving the right lung and the patient became slightly hypoxic and he is currently on 2 L of oxygen by nasal cannula with pulse ox of 96%. I reviewed the records and also discussed the case with cardiology. In summary, the patient presented to the hospital because of chest discomfort and back pain and the patient subsequently went into ventricular tachycardia. The EKG showed sinus mechanism initially with an anterior wall myocardial infarction and the patient also had elevated troponin level and echocardiogram showed anteroapical and anteroseptal akinesis. The patient has undergone coronary stenting more than 20 years ago. At that point, the patient was taken to cardiac catheterization and the patient was found to have chronically occluded RCA with collaterals from the left. The patient has a patent stent in the proximal LAD with mild in stent restenosis and mild disease involving the circumflex and normal left ventricular diastolic pressure. The patient was told to have ventricular tachycardia related to previous myocardial infarction and scarring. Based on that, recommendations were made for an AICD placement. The patient also has cardiomyopathy and is echocardiogram that was done on 03/26/2024 showed evidence of impaired LV function with an ejection fraction of 35 to 40% and segmental wall motion abnormalities and moderately impaired ventricular systolic function. No other significant valvular abnormalities. The patient had mild to moderate MR and mild aortic stenosis and mild aortic regurgitation. At this point in time, the patient remains on IV heparin. Remains on amiodarone 4 mg p.o. twice a day. Remains on metoprolol 50 mg twice a day. Free of any chest pain. Hemodynamically stable. I reviewed the chest x-ray that was done on this patient on 03/26/2024 and the patient was found to have increased interstitial markings probably some asymmetric pulmonary edema. No clear indication for bacterial pneumonia and a follow-up chest x-ray is accordingly recommended. Patient was evaluated today on 04/05/24, feeling much better, hardly any pulmon josé miguel symptoms no cough no wheezing no shortness of breath, patient is on room air, does not seem to be in any distress.WBC count is 7.8 hemoglobin is 11.9 PTT is 47.8 electrolytes are normal renal profile is normal telemetry shows A-fib with controlled rate, patient is awaiting EP evaluationStatus post cardiac catheterization revealing chronically occluded RCA with collaterals from the left system, patent stent in the proximal LAD with mild in-stent restenosis, mild disease in the left circumflex and normal LVEDP Patient was evaluated today on 04/06/2024, patient is doing well, relatively asymptomatic, no cough no wheezing no shortness of breath, he is scheduled to have AICD placement tomorrow by Dr. MotaBC count is 7.8 hemoglobin 11.9 PTT is 35.1. Basic metabolic profile is normal renal profile is normal, Patient is on room air, O2 sats is 98% Objective - Vital Signs Vital signs: Vital Signs Temp 98.3 F 04/06/24 11:19 Pulse 60 04/06/24 13:07 Resp 16 04/06/24 11:19 BP 135/87 04/06/24 11:19 Pulse Ox 98 04/06/24 11:19 FiO2 Intake & Output 04/05/24 04/06/24 04/06/24 18:59 06:59 18:59 Intake Total 326.758 458.037 Output Total 300 Balance 326.758 -300 458.037 Weight 85.7 kg Intake: Intake, IV Titration 90.758 278.037 Amount Heparin Sod,Pork in 0.45% 90.758 278.037 NaCl 25,000 unit In 0.45 % NaCl 1 250ml.bag @ 11. 521 UNITS/KG/HR 10 mls/hr IV .Q24H [facility] Rx#: [id number] Oral 236 180 Output: Urine 300 Other: Voiding Method Toilet Toilet Toilet Urinal Urinal Urinal # Voids 2 2 1 - Exam General: The patient is awake and alert, in no distress, and does not appear acutely ill. On room air Skin: Skin is warm and dry and no rashes or lesions are noted. Eye: Pupils are equal, round and reactive to light, extra-ocular movements are intact; there is normal conjunctiva bilaterally. Ears, nose, mouth and throat: There are moist mucous membranes and no oral lesions. Neck: The neck is supple, there is no tenderness or JVD. Cardiovascular: Irregular rate and rhythm. S1 and S2 heard. Systolic murmur noted. Respiratory: Diminished breath sounds at the bases no crackles rhonchi or wheezes Gastrointestinal: Soft, non-distended, non-tender abdomen without masses or organomegaly noted. There is no rebound or guarding present. Bowel sounds are unremarkable. Back: There is no tenderness to palpation in the midline. There is no obvious deformity. Neurological: CN II-XII intact, Cranial nerves III through XII are intact. There are no obvious motor or sensory deficits. Coordination appears grossly intact. Speech is normal. Psychiatric: Cooperative, appropriate mood & affect, normal judgment. - Labs CBC & Chem 7: 04/05/24 08:52 04/05/24 02:24 Labs: Abnormal Lab Results - Last 24 Hours (Table) 04/06/24 Range/Units 08:00 APTT 35.1 H (22.0-30.0) sec Assessment and Plan Assessment: Impression: Acute hypoxic respiratory failure, improved with treatment of his unilateral pulmonary edema patient is known to have history of chronic systolic congestive heart failure, chest x-ray today is showing improvement in his pulmonary edema Symptomatic coronary artery disease,vrecent cardiac catheterization indicating chronically occluded RCA with collaterals from the left along with a patent stent in the LAD and normal left-ventricular diastolic pressure Chronic systolic heart failure with ejection fraction of 35% Ventricular tachycardia status post cardioversion and current heart rate is sinus mechanism and the patient is currently on a combination of metoprolol and amiodarone. Paroxysmal atrial fibrillation Hypertension Hyperlipidemia Diabetes mellitus Recommendation: AICD scheduled for sometime later today. Continue present supportive care measures Continue diuretics Chest x-ray was reviewed and seems to be reassuring. It actually correlates with his clinical findings. Will continue to follow Time with Patient: Less than 30
[2024-04-06] MEDS ORDERED: ONDANSETRON 4 MG/2 ML VIAL IVP PRN (15:40)
--- NOTE | 2024-04-06 16:01 | P.EPCON ---
Electrophysiology Consult - EP Consult Electrophysiology Consult: This is Dr. Beyer dictating a consult on this patient The patient was interviewed and examined IMPRESSION / ASSESSMENT: Chronic coronary artery disease with ischemic cardiomyopathy and remote anterior septal apical old infarct > 1 year No new coronary artery disease/no new occlusive disease on coronary angiography Abnormal troponins are present demand ischemia during VT, sustained Electrical cardioversion for ventricular tachycardia emergently Left ventricular ejection fraction 35 to 40% Symptomatic fast monomorphic VT requiring emergent cardioversion in the emergency room Anterolateral VT exit, LV PLAN: Recommend ICD implantation for secondary prevention of cardiac Maximize beta-blockers Taper off amiodarone over the next month 100-200 mg p.o. daily If recurrent, proceed with VT ablation in the future HPI Patient presented with back pain radiating to the chest that started 2 to 3 hours back prior to arrival to the ER Diaphoretic and short of breath Twelve-lead EKG showed wide-complex tachycardia 200 beats a minute consistent with ventricular tachycardia Left bundle branch block like pattern with a broad initial r wave Q waves V2-V5 and lead I and aVL Upright in inferior leads Consistent with ventricular tachycardia from the anterior wall, lateral exit Elevated troponin of 7.1 consistent with demand ischemia due to sustained VT in the setting of chronic CAD without any new occlusive disease as demonstrated by coronary angiography on this admission Treated for VT cardioverted emergently. Amiodarone begun Cardiomyopathy and CAD medications continued At baseline he has shortness of breath with average exertion but no angina, class II CHF ROS: No fever chills or rigors, no cough, phlegm or expectoration, no nausea, vomiting or diarrhea, no hematuria, dysuria, no musculoskeletal complaints, no strokes or seizures, no skin lesions. EXAMINATION: Normal blood pressure, normal heart rates No JVD No murmurs Clear lungs no rhonchi no crackles Abdomen soft REVIEW OF LABS, ECG & MEDICAL DATA In sinus rhythm, normal heart rates, CO interval mildly prolonged, narrow QRS Q waves V1 through V4 consistent with old anterior infarct Cardiac catheterization reveals calcification of the LAD, stented proximal LAD, patent stent with 20 to 30% in-stent restenosis Mild disease in the left circumflex Chronically occluded RCA at the ostium Left ventricular ejection fraction of 35-40% with moderate LVH Large anterior apical anteroseptal and anterolateral akinesis consistent with old IL/CAD Left atrial enlargement Mild aortic stenosis
[2024-04-06] MEDS: IV FLUID CONTINUATION 1,000 ML IV ONE (17:43)
[2024-04-06] MEDS ORDERED: MIDAZOLAM 2 MG/2 ML VIAL ONE (17:47)
[2024-04-06] MEDS ORDERED: PROPOFOL 10 MG/ML 20 ML VIAL IV ONE (17:47)
[2024-04-06] MEDS ORDERED: fentaNYL (PF) 50 MCG/ML 2 ML AMP ONE (17:47)
[2024-04-06] MEDS: IOPAMIDOL-250 100ML BTL IVP ONE (17:56)
[2024-04-06] MEDS: ROPIVACAINE 5 MG/ML 30 ML VIAL MISCELLANE ONE (18:17)
[2024-04-06] MEDS: LIDOCAINE 1% INJ 10MG/ML (20 ML MDV) SQ ONE ×2 (18:17→18:25)
[2024-04-06] MEDS: ceFAZolin 1,000 MG in SODIUM CHLORIDE 0.9% IRRIG BTL 250 ML IRRIGATION ONE (18:28)
--- NOTE | 2024-04-06 19:24 | P.EPPROC ---
- EP Procedure Note Electrophysiology Procedure Note: Diagnosis: Single-chamber ICD for secondary prevention of sudden cardiac Cardiomyopathy, chronic, ischemic with old [place], remote Old anterior wall [place] with Q waves V1-V4 Presented with sustained monomorphic VT requiring emergent cardioversion, anterolateral exit from LV scar No evidence for type I acute myocardial infarction, no acute, new occlusive disease in the coronary arteries by coronary angiography Type II myocardial infarction with abnormal cardiac enzymes, related to demand Congestive heart failure, systolic, class II On guideline directed medical treatment Procedure: Single ICD implantation for management of risk of sudden cardiac , AVID indication Defibrillation level testing performed, successful at 10 J [employer] Animal Trainer: Dr. Beyer Result: Single chamber ICD implantation for secondary prevention of sudden cardiac , RV ICD lead: Low RV septum just above RV apex R waves greater than 12 mV, pacing threshold 0.8 V at 0.5 ms and pacing impedance of 510 ohms High-voltage impedance 60 ohms, RV coil-can ICD generator: [employer], VR single-chamber ICD Procedure details: Patient was brought to the EP lab in a fasting state. Written informed consent was obtained prior to the procedure. Options, pros and cons, benefits and risks and complications discussed with patient in detail prior to the procedure (shared decision making document, from [facility]). Importance of continuing medical treatment emphasized. Alternatives discussed. Patient would like to proceed with ICD implant. Left upper extremity venogram performed. 15 mL IV dye injected in the left arm. Patent axillary/subclavian vein The left pectoral area was prepped and draped as a protocol. IV antibiotics administered 1% lidocaine was used for local anesthesia. A 4 cm incision was made parallel to the deltopectoral groove, about 1.5 cm medial to it. The incision was carried down to the level of the pectoralis muscle and the subfascial pocket was made. Hemostasis was assured. The axillary vein access was obtained at the level of the second rib. Appropriately sized venous sheath was placed. ICD lead implanted in the right ventricle and screwed in. ICD lead tested for threshold, sensing, impedances and tested with high output pacing for diaphragmatic stimulation Lead secured to the underlying transverse muscle after removing sheaths . Pocket irrigated with antibiotic solution Defibrillation level testing performed VF induced and successfully detected without dropouts Successfully internally defibrillated with a 10 J shock, charge time 1.8 seconds, high-voltage impedance 60 ohms, no post shock noise Anode polarity Leads connected to the ICD generator. Wound closed in 3 layers and dressed per protocol ICD was interrogated and programmed. Appropriate pacing parameters, antitachycardia therapies with antitachycardia pacing cardioversion defibrillations programmed. Patient tolerated the procedure well without any acute complications. See scanned device report in EMR for lead details Plan Maximize beta-blockers Taper off amiodarone over 6 weeks to 100-200 mg p.o. daily Continue cardiomyopathy and antiatherosclerotic medications If he has a recurrence of VT, particularly slow VT, recommend VT ablation. Discussed with patient and his family
[2024-04-06] MEDS: APIXABAN 5 MG TAB PO SCH (20:46)
[2024-04-06] MEDS: ACETAMINOPHEN TAB 325 MG TAB PO PRN (23:38)
[2024-04-07 06:30] LABS: Basophils % (A) 0 %; Eosinophils # (A) 0.6 k/uL (0-0.7); Eosinophils % (A) 8 %; HCT 39.7 % (39.0-53.0); HGB 12.9 gm/dL (13.0-17.5); Lymphocytes # (A) 0.7 k/uL (1.0-4.8); Lymphocytes % (A) 10 %; MCH 31.6 pg (25.0-35.0); MCHC 32.5 g/dL (31.0-37.0); Mean Platelet Volume 7.8; Monocytes # (A) 0.5 k/uL (0-1.0); Monocytes % (A) 8 %; Neutrophils # (A) 4.8 k/uL (1.3-7.7); Neutrophils % (A) 72 %; Platelet Count 231 k/uL (150-450); RBC 4.09 m/uL (4.30-5.90); RDW 13.5 % (11.5-15.5); WBC 6.7 k/uL (3.8-10.6)
[2024-04-07 06:38] LABS: ALT 14 U/L (4-49); AST 25 U/L (17-59); African American GFR (CKD) 84 (>60 ml/min/1.73 sqM); Alkaline Phosphatase 69 U/L (38-126); Anion Gap 11 mmol/L; Blood Urea Nitrogen 20 mg/dL (9-20); Calcium 9.5 mg/dL (8.4-10.2); Carbon Dioxide 22 mmol/L (22-30); Chloride 104 mmol/L (98-107); Glucose 107 mg/dL (74-99); Non-African American GFR(CKD) 72 (>60 ml/min/1.73 sqM); Potassium 3.9 mmol/L (3.5-5.1); Sodium 137 mmol/L (137-145); Total Bilirubin 1.1 mg/dL (0.2-1.3); Total Protein 6.7 g/dL (6.3-8.2)
--- NOTE | 2024-04-07 08:30 | XR ---
EXAMINATION TYPE: XR chest 2V DATE OF EXAM: 04/07/2024 COMPARISON: 04/06/2024 HISTORY: Shortness of breath TECHNIQUE: Frontal and lateral views of the chest are obtained. FINDINGS: Scattered senescent parenchymal changes noted. Hyperinflation compatible with COPD. Suspect mild fibr otic changes at the lung bases. Single-lead pacer is noted with distal leads within the right ventricle. No evidence for pneumothorax . No evidence for infiltrate. No evidence for atelectasis. Heart size is stable. Mediastinal structures are stable and grossly unremarkable. No evidence for hilar prominence. Degenerative changes dorsal spine. IMPRESSION: 1. No evidence for acute pulmonary disease. [facility], , 04/07/2024 8:28 AM
[2024-04-07] MEDS: SPIRONOLACTONE 25 MG TAB PO SCH (09:14)
[2024-04-07] MEDS: METOPROLOL SUCCINATE (ER) 25 MG TAB.ER.24H PO SCH (09:15)
[2024-04-07] MEDS: LOSARTAN 50 MG TAB PO STA (12:06)
--- NOTE | 2024-04-07 12:38 | P.PN ---
Subjective Progress Note Date: 04/07/24 Jameel Ferreira, is a 73-year-old male who presented to [facility] emergency room with a chief complaint of chest discomfort radiating to the middle of his back and shortness of breath. Patient stated that he had a myocardial infarction in 1992 followed by cardiac catheterization with matilda oplasty and stent placement, at that time. Patient states that few months ago he had cardiac catheterization, he had minimal disease without any need for angioplasty or stent placement. On presentation to emergency room heart rate was in the 200s, EKG revealed ventricular tachycardia, and patient underwent cardioversion, he was started on IV heparin, IV amiodarone, and cardiology consultation was requested He was evaluated in the emergency room vital examination on presentation revealed a temperature of 97.8 pulse 202 respiration 20 blood pressure 126/84 pulse ox 98% on room air Laboratory data revealed a white blood count of 11.6 hemoglobin 14.3 platelet count 268 BUN 31 creatinine 1.21 troponin level 0.22 Testing in the emergency room revealed EKG revealed ventricular tachycardia, chest x-ray revealed right middle lobe infiltrate. Patient was admitted to telemetry floor for further evaluation and treatment On 04/04/2024 patient was seen and examined on the telemetry floor he is alert and oriented x 3 in no apparent distress he denies any complaints at this time there is no fever or chills no headache or dizziness no chest pain no shortness of breath no cough no nausea or vomiting no abdominal pain no diarrhea and no urinary symptoms. Results of cardiac catheterization were discussed with the patient. At this time we are awaiting further recommendation from cardiology regarding ICD implantation. On 04/05/2024 patient was seen and examined on the telemetry floor he is alert and oriented x 3 in no apparent distress there is no fever or chills no headache or dizziness no chest pain no shortness of breath no cough no nausea or vomiting no abdominal pain no diarrhea and no urinary symptoms at this time we are awaiting further recommendation from cardiology in regard to ICD placement. On 04/06/2024 patient is alert and oriented x 3. Per patient plans today for AICD placement per cardiology. At this time patient denies chest pain or shortness of breath. Patient denies nausea vomiting or diarrhea. Patient denies any urinary burning or frequency. Patient remains on IV heparin. Current vital signs temp 98.5, heart rate 79, respiratory rate 16, blood pressure 152/82 with pulse ox 98% on room air On 04/07/2024 patient is alert and oriented x 3. Patient had AICD placement yesterday. Patient having significant elevated blood pressure. Cardiology to adjust medication. Continue to monitor for the next 24 hours. Patient denies chest pain or shortness of breath. Patient denies nausea vomiting or diarrhea. Patient denies any urinary burning or frequency Objective - Vital Signs Vital signs: Vital Signs Temp 98.3 F 04/07/24 12:00 Pulse 80 04/07/24 12:00 Resp 16 04/07/24 12:00 BP 203/93 04/07/24 12:00 Pulse Ox 98 04/07/24 12:00 FiO2 Intake & Output 04/06/24 04/07/24 04/07/24 18:59 06:59 18:59 Intake Total 608.037 520 200 Balance 608.037 520 200 Weight 85.6 kg Intake: IV 150 40 20 Invasive Line 1 20 10 Invasive Line 3 20 10 Intake, IV Titration 278.037 Amount Heparin Sod,Pork in 0.45% 278.037 NaCl 25,000 unit In 0.45 % NaCl 1 250ml.bag @ 11. 521 UNITS/KG/HR 10 mls/hr IV .Q24H [facility] Rx#: [id number] Oral 180 480 180 Other: Voiding Method Toilet Toilet Toilet Urinal Urinal Urinal # Voids 1 1 - Exam In general patient is alert and oriented x 3 in no distress HEENT head normocephalic and atraumatic Neck is supple no JVD no goiter no lymphadenopathy no carotid bruit Chest examination is clear to auscultation no crackles no wheezing Cardiac exam reveals regular heart sounds S1 and S2 no gallops no murmurs Abdomen is soft nontender no organomegaly with normal bowel sounds Extremity exam reveals no edema no cyanosis or clubbing Neurological examination reveals no gross focal deficits - Labs CBC & Chem 7: 04/07/24 05:56 04/07/24 05:56 Labs: Abnormal Lab Results - Last 24 Hours (Table) 04/07/24 04/07/24 Range/Units 05:56 05:56 RBC 4.09 L (4.30-5.90) m/uL Hgb 12.9 L (13.0-17.5) gm/dL Lymphocytes # 0.7 L (1.0-4.8) k/uL Glucose 107 H (74-99) mg/dL Assessment and Plan Plan: Chest pain and shortness of breath on presentation Elevated troponin levels Ventricular tachycardia in the emergency room with cardioversion Underlying history of hypertension Underlying history of hyperlipidemia Underlying history of diabetes mellitus Previous history of coronary artery disease with angioplasty and stent placement more than 30 years ago Right middle lobe infiltrate on chest x-ray At this time patient was seen and examined. Patient underwent cardioversion in the emergency room and was started on IV heparin and IV amiodarone He was seen by cardiology, and plan is to proceed with cardiac catheterization. Will add pulmonary consultation in regard to right middle lobe infiltrate Patient underwent cardiac catheterization on 04/03/2024, which revealed chronically occluded RCA with collaterals from the left system, patent stent in the proximal LAD with mild in-stent restenosis, and mild disease in the left circumflex, Status post AICD placement Will follow closely
--- NOTE | 2024-04-07 14:13 | P.PN ---
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 He has a known history of CAD status post stenting in the s, underwent cardiac catheterization according to him few months ago and no intervention was needed with mild to moderate disease, detail of his workup is unavailable. He had a prior history of myocardial infarction prior to the stenting. On presentation he was tachycardic with a rate in the 200 and his EKG was consistent with ventri cular tachycardia. He was given initially adenosine and subsequently amiodarone without change and subsequently underwent cardioversion with restorationism of sinus mechanism. He is doing well this morning, he denies any chest discomfort, his breathing is stable. He denies any dizziness or palpitat ions. He has a prior history of paroxysmal atrial fibrillation and has been anticoagulated. He has no significant peripheral edema, no PND or orthopnea. He is unaware of his ejection fraction but does not carry the diagnosis of CHF or cardiomyopathy. His lab data showed a troponin elevated up to 7.1, his EKG is consistent with anterior wall myocardial infarction. His clearance factors are positive for hypertension, hyperlipidemia, diabetes, he smokes marijuana. Medications: Metformin, Lopid, Tenormin 25 mg daily, losartan 25 mg daily, Lipitor 40 mg daily, Eliquis 5 mg twice a day 04/04/2024 Patient is status post cardiac catheterization yesterday with Dr. López revealing chronically occluded RCA with collaterals from the left system, patent stent in the proximal LAD with mild in-stent restenosis, mild disease in the left circumflex and normal LVEDP. Patient examined this morning at the bedside. Patient currently denies chest pain or pressure. He denies shortness of breath. Telemetry reveals sinus mechanism. Patient's blood pressure elevated this morning with a reading of 151/78. 04/06/2024 Patient examined at this morning at the bedside. Patient currently denies chest pain or pressure. He denies shortness of breath. Patient remains on IV heparin. He is scheduled to undergo ICD implantation today. April 07, 2024 Patient examined this morning at the bedside. He is status post ICD implantation yesterday with Dr. Beyer. Patient currently denies chest pain or pressure. He denies shortness of breath. Patient's blood pressures elevated with a systolic blood pressure ranging between [id number]. PHYSICAL EXAM: VITAL SIGNS: Reviewed. GENERAL: Well-developed in no acute distress. NECK: Supple. No JVD or thyromegaly LUNGS: Respirations even and unlabored. Lungs essentially clear to auscultation bilaterally. HEART: Regular rate and rhythm. S1 and S2 heard. Systolic murmur noted. EXTREMITIES: Normal range of motion. No clubbing or cyanosis. Peripheral p ulses intact. No lower extremity edema ASSESSMENT: Ventricular tachycardia, status post cardioversion, maintaining sinus mechanism, likely secondary to prior myocardial infarction and scarring Status post single-chamber ICD implantation, Matthews, 04/06/2024 Status post cardiac catheterization revealing chronically occluded RCA with collaterals from the left system, patent stent in the proximal LAD with mild in- stent restenosis, mild disease in the left circumflex and normal LVEDP Elevated troponins secondary to myocardial injury from ventricular tachycardia Coronary artery disease with previous stenting of the LAD Paroxysmal atrial fibrillation Hypertension, uncontrolled Hyperlipidemia Diabetes PLAN: Continue current cardiac medications Continue telemetry monitoring Increase losartan to 100 mg daily Patient has been resumed on Eliquis Do not hold beta ricardo Further recommendations pending patient course Nurse practitioner note has been reviewed by physician. Signing provider agrees with the documented findings, assessment, and plan of care documented by [employer] as a scribe. Objective - Vital Signs Vital signs: Vital Signs Temp 98.3 F 04/07/24 12:00 Pulse 80 04/07/24 12:00 Resp 16 04/07/24 12:00 BP 203/93 04/07/24 12:00 Pulse Ox 98 04/07/24 12:00 FiO2 Intake & Output 04/06/24 04/07/24 04/07/24 18:59 06:59 18:59 Intake Total 608.037 520 200 Balance 608.037 520 200 Weight 85.6 kg Intake: IV 150 40 20 Invasive Line 1 20 10 Invasive Line 3 20 10 Intake, IV Titration 278.037 Amount Heparin Sod,Pork in 0.45% 278.037 NaCl 25,000 unit In 0.45 % NaCl 1 250ml.bag @ 11. 521 UNITS/KG/HR 10 mls/hr IV .Q24H [facility] Rx#: [id number] Oral 180 480 180 Other: Voiding Method Toilet Toilet Toilet Urinal Urinal Urinal # Voids 1 1 - Labs CBC & Chem 7: 04/07/24 05:56 04/07/24 05:56 Labs: Abnormal Lab Results - Last 24 Hours (Table) 04/07/24 04/07/24 Range/Units 05:56 05:56 RBC 4.09 L (4.30-5.90) m/uL Hgb 12.9 L (13.0-17.5) gm/dL Lymphocytes # 0.7 L (1.0-4.8) k/uL Glucose 107 H (74-99) mg/dL
--- NOTE | 2024-04-07 16:25 | P.PN ---
Subjective Progress Note Date: 04/07/24 Principal diagnosis: Acute hypoxic respiratory failure, most likely secondary to asymmetric pulmonary edema. And chronic systolic congestive heart failure This is a 73-year-old male patient who is being seen in consultation for abnormal chest x-ray that showed pulmonary filtration involving the right lung and the patient became slightly hypoxic and he is currently on 2 L of oxygen by nasal cannula with pulse ox of 96%. I reviewed the records and also discussed the case with cardiology. In summary, the patient presented to the hospital because of chest discomfort and back pain and the patient subsequently went into ventricular tachycardia. The EKG showed sinus mechanism initially with an anterior wall myocardial infarction and the patient also had elevated troponin level and echocardiogram showed anteroapical and anteroseptal akinesis. The patient has undergone coronary stenting more than 20 years ago. At that point, the patient was taken to cardiac catheterization and the patient was found to have chronically occluded RCA with collaterals from the left. The patient has a patent stent in the proximal LAD with mild in stent restenosis and mild disease involving the circumflex and normal left ventricular diastolic pressure. The patient was told to have ventricular tachycardia related to previous myocardial infarction and scarring. Based on that, recommendations were made for an AICD placement. The patient also has cardiomyopathy and is echocardiogram that was done on 03/26/2024 showed evidence of impaired LV function with an ejection fraction of 35 to 40% and segmental wall motion abnormalities and moderately impaired ventricular systolic function. No other significant valvular abnormalities. The patient had mild to moderate MR and mild aortic stenosis and mild aortic regurgitation. At this point in time, the patient remains on IV heparin. Remains on amiodarone 4 mg p.o. twice a day. Remains on metoprolol 50 mg twice a day. Free of any chest pain. Hemodynamically stable. I reviewed the chest x-ray that was done on this patient on 03/26/2024 and the patient was found to have increased interstitial markings probably some asymmetric pulmonary edema. No clear indication for bacterial pneumonia and a follow-up chest x-ray is accordingly recommended. Patient was evaluated today on 04/05/24, feeling much better, hardly any pulmon josé miguel symptoms no cough no wheezing no shortness of breath, patient is on room air, does not seem to be in any distress.WBC count is 7.8 hemoglobin is 11.9 PTT is 47.8 electrolytes are normal renal profile is normal telemetry shows A-fib with controlled rate, patient is awaiting EP evaluationStatus post cardiac catheterization revealing chronically occluded RCA with collaterals from the left system, patent stent in the proximal LAD with mild in-stent restenosis, mild disease in the left circumflex and normal LVEDP Patient was evaluated today on 04/06/2024, patient is doing well, relatively asymptomatic, no cough no wheezing no shortness of breath, he is scheduled to have AICD placement tomorrow by Dr. MotaBC count is 7.8 hemoglobin 11.9 PTT is 35.1. Basic metabolic profile is normal renal profile is normal, Patient is on room air, O2 sats is 98% Patient was seen on 04/07/2024, patient is doing great, asymptomatic, patient would like to go home, losartan was increased by cardiology to 100 mg daily blood pressure remains poorly controlled, patient remains on beta-blockers, he had uneventful AICD placement. Labs today are unremarkable including CBC basic metabolic profile and renal profile x-ray yesterday showed no evidence of active pulmonary disease no evidence of pulmonary edema Objective - Vital Signs Vital signs: Vital Signs Temp 98.2 F 04/07/24 15:20 Pulse 78 04/07/24 15:20 Resp 18 04/07/24 15:20 BP 162/84 04/07/24 15:20 Pulse Ox 97 04/07/24 15:20 FiO2 Intake & Output 04/06/24 04/07/24 04/07/24 18:59 06:59 18:59 Intake Total 608.037 520 560 Balance 608.037 520 560 Weight 85.6 kg Intake: IV 150 40 40 Invasive Line 1 20 20 Invasive Line 3 20 20 Intake, IV Titration 278.037 100 Amount Heparin Sod,Pork in 0.45% 278.037 NaCl 25,000 unit In 0.45 % NaCl 1 250ml.bag @ 11. 521 UNITS/KG/HR 10 mls/hr IV .Q24H [facility] Rx#: [id number] ceFAZolin 2 gm In Sodium 50 Chloride 0.9% 50 ml @ 100 mls/hr IVPB ONCE PRN Rx# :[id number] ceFAZolin 2 gm In Sodium 50 Chloride 0.9% 50 ml @ 100 mls/hr IVPB Q6H [facility] Rx#: [id number] Oral 180 480 420 Other: Voiding Method Toilet Toilet Toilet Urinal Urinal Urinal # Voids 1 1 - Exam General: The patient is awake and alert, in no distress, and does not appear acutely ill. On room air Skin: Skin is warm and dry and no rashes or lesions are noted. Eye: Pupils are equal, round and reactive to light, extra-ocular movements are intact; there is normal conjunctiva bilaterally. Ears, nose, mouth and throat: There are moist mucous membranes and no oral lesions. Neck: The neck is supple, there is no tenderness or JVD. Cardiovascular: Irregular rate and rhythm. S1 and S2 heard. Systolic murmur noted. Respiratory: Diminished breath sounds at the bases no crackles rhonchi or wheezes Gastrointestinal: Soft, non-distended, non-tender abdomen without masses or organomegaly noted. There is no rebound or guarding present. Bowel sounds are unremarkable. Back: There is no tenderness to palpation in the midline. There is no obvious deformity. Neurological: CN II-XII intact, Cranial nerves III through XII are intact. There are no obvious motor or sensory deficits. Coordination appears grossly intact. Speech is normal. Psychiatric: Cooperative, appropriate mood & affect, normal judgment. - Labs CBC & Chem 7: 04/07/24 05:56 04/07/24 05:56 Labs: Abnormal Lab Results - Last 24 Hours (Table) 04/07/24 04/07/24 Range/Units 05:56 05:56 RBC 4.09 L (4.30-5.90) m/uL Hgb 12.9 L (13.0-17.5) gm/dL Lymphocytes # 0.7 L (1.0-4.8) k/uL Glucose 107 H (74-99) mg/dL Assessment and Plan Assessment: Impression: Acute hypoxic respiratory failure, improved with treatment of his unilateral pulmonary edema patient is known to have history of chronic systolic congestive heart failure, chest x-ray today is showing improvement in his pulmonary edema Symptomatic coronary artery disease,vrecent cardiac catheterization indicating chronically occluded RCA with collaterals from the left along with a patent stent in the LAD and normal left-ventricular diastolic pressure Chronic systolic heart failure with ejection fraction of 35% Ventricular tachycardia status post cardioversion and current heart rate is sinus mechanism and the patient is currently on a combination of metoprolol and amiodarone. Paroxysmal atrial fibrillation Hypertension Hyperlipidemia Diabetes mellitus Recommendation: Chest x-ray is reassuring Continue present supportive care measures Continue diuretics Cardiology is addressing his blood pressure medications Possible discharge planning in the next 24 hours Will clear the patient for discharge once he is cleared by other consultants. . Will continue to follow Time with Patient: Less than 30
[2024-04-08 07:05] LABS: Basophils % (A) 0 %; Eosinophils # (A) 0.5 k/uL (0-0.7); Eosinophils % (A) 7 %; HCT 38.4 % (39.0-53.0); HGB 12.4 gm/dL (13.0-17.5); Lymphocytes # (A) 0.6 k/uL (1.0-4.8); Lymphocytes % (A) 9 %; MCH 31.4 pg (25.0-35.0); MCHC 32.4 g/dL (31.0-37.0); Mean Platelet Volume 7.1; Monocytes # (A) 0.5 k/uL (0-1.0); Monocytes % (A) 7 %; Neutrophils # (A) 5.1 k/uL (1.3-7.7); Neutrophils % (A) 75 %; Platelet Count 230 k/uL (150-450); RBC 3.96 m/uL (4.30-5.90); WBC 6.8 k/uL (3.8-10.6)
[2024-04-08 07:16] LABS: ALT 15 U/L (4-49); AST 27 U/L (17-59); African American GFR (CKD) >90 (>60 ml/min/1.73 sqM); Albumin 3.5 g/dL (3.5-5.0); Alkaline Phosphatase 75 U/L (38-126); Anion Gap 8 mmol/L; Blood Urea Nitrogen 15 mg/dL (9-20); Calcium 9.3 mg/dL (8.4-10.2); Carbon Dioxide 23 mmol/L (22-30); Chloride 104 mmol/L (98-107); Glucose 123 mg/dL (74-99); Non-African American GFR(CKD) 83 (>60 ml/min/1.73 sqM); Potassium 3.6 mmol/L (3.5-5.1); Sodium 135 mmol/L (137-145)
[2024-04-08 07:51] VITALS: RESP 16
[2024-04-08] MEDS: LOSARTAN 50 MG TAB PO SCH (09:34)
--- NOTE | 2024-04-08 11:26 | P.PN ---
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 He has a known history of CAD status post stenting in the s, underwent cardiac catheterization according to him few months ago and no intervention was needed with mild to moderate disease, detail of his workup is unavailable. He had a prior history of myocardial infarction prior to the stenting. On presentation he was tachycardic with a rate in the 200 and his EKG was consistent with ventri cular tachycardia. He was given initially adenosine and subsequently amiodarone without change and subsequently underwent cardioversion with mandaen of sinus mechanism. He is doing well this morning, he denies any chest discomfort, his breathing is stable. He denies any dizziness or palpitat ions. He has a prior history of paroxysmal atrial fibrillation and has been anticoagulated. He has no significant peripheral edema, no PND or orthopnea. He is unaware of his ejection fraction but does not carry the diagnosis of CHF or cardiomyopathy. His lab data showed a troponin elevated up to 7.1, his EKG is consistent with anterior wall myocardial infarction. His clearance factors are positive for hypertension, hyperlipidemia, diabetes, he smokes marijuana. Medications: Metformin, Lopid, Tenormin 25 mg daily, losartan 25 mg daily, Lipitor 40 mg daily, Eliquis 5 mg twice a day 04/04/2024 Patient is status post cardiac catheterization yesterday with Dr. López revealing chronically occluded RCA with collaterals from the left system, patent stent in the proximal LAD with mild in-stent restenosis, mild disease in the left circumflex and normal LVEDP. Patient examined this morning at the bedside. Patient currently denies chest pain or pressure. He denies shortness of breath. Telemetry reveals sinus mechanism. Patient's blood pressure elevated this morning with a reading of 151/78. 04/06/2024 Patient examined at this morning at the bedside. Patient currently denies chest pain or pressure. He denies shortness of breath. Patient remains on IV heparin. He is scheduled to undergo ICD implantation today. April 07, 2024 Patient examined this morning at the bedside. He is status post ICD implantation yesterday with Dr. Beyer. Patient currently denies chest pain or pressure. He denies shortness of breath. Patient's blood pressures elevated with a systolic blood pressure ranging between [id number]. April 08, 2024 Patient examined this morning at the bedside. Patient denies chest pain or pressure. He denies shortness of breath. He has been up ambulating in the hallway. Patient's blood pressures remain elevated, although improved from yesterday. PHYSICAL EXAM: VITAL SIGNS: Reviewed. GENERAL: Well-developed in no acute distress. NECK: Supple. No JVD or thyromegaly LUNGS: Respirations even and unlabored. Lungs essentially clear to auscultation bilaterally. HEART: Regular rate and rhythm. S1 and S2 heard. Systolic murmur noted. EXTREMITIES: Normal range of motion. No clubbing or cyanosis. Peripheral pulses intact. No lower extremity edema ASSESSMENT: Ventricular tachycardia, status post cardioversion, maintaining sinus mechanism, likely secondary to prior myocardial infarction and scarring Status post single-chamber ICD implantation, Matthews, 04/06/2024 Status post cardiac catheterization revealing chronically occluded RCA with collaterals from the left system, patent stent in the proximal LAD with mild in- stent restenosis, mild disease in the left circumflex and normal LVEDP Elevated troponins secondary to myocardial injury from ventricular tachycardia Coronary artery disease with previous stenting of the LAD Paroxysmal atrial fibrillation Hypertension, uncontrolled Hyperlipidemia Diabetes PLAN: Continue current cardiac medications Continue telemetry monitoring Increase Aldactone to 50 mg daily. Give an additional 25 mg this morning. Patient instructed to keep a log of his blood pressures at home and bring with him to his follow-up appointment Patient may be discharged home this afternoon from a cardiac standpoint Nurse practitioner note has been reviewed by physician. Signing provider agrees with the documented findings, assessment, and plan of care documented by ARCHEOLOGY PROFESSOR as a scribe. Objective - Vital Signs Vital signs: Vital Signs Temp 98.2 F 04/08/24 07:49 Pulse 89 04/08/24 07:49 Resp 16 04/08/24 07:49 BP 185/87 04/08/24 07:49 Pulse Ox 98 04/08/24 07:49 FiO2 Intake & Output 04/07/24 04/08/24 04/08/24 18:59 06:59 18:59 Intake Total 920 20 Output Total 1 Balance 920 19 Weight 84.3 kg Intake: IV 40 20 Invasive Line 1 20 Invasive Line 3 20 20 Intake, IV Titration 100 Amount ceFAZolin 2 gm In Sodium 50 Chloride 0.9% 50 ml @ 100 mls/hr IVPB ONCE PRN Rx# :[id number] ceFAZolin 2 gm In Sodium 50 Chloride 0.9% 50 ml @ 100 mls/hr IVPB Q6H [facility] Rx#: [id number] Oral 780 0 Output: Urine 1 Other: Voiding Method Toilet Toilet Urinal Urinal # Voids 1 # Bowel Movements 1 - Labs CBC & Chem 7: 04/08/24 06:22 04/08/24 06:22 Labs: Abnormal Lab Results - Last 24 Hours (Table) 04/08/24 04/08/24 Range/Units 06:22 06:22 RBC 3.96 L (4.30-5.90) m/uL Hgb 12.4 L (13.0-17.5) gm/dL Hct 38.4 L (39.0-53.0) % Lymphocytes # 0.6 L (1.0-4.8) k/uL Sodium 135 L (137-145) mmol/L Glucose 123 H (74-99) mg/dL Total Protein 6.0 L (6.3-8.2) g/dL
[2024-04-08 11:27] VITALS: BP 177/83; PULSE 79; TEMP 98.4
[2024-04-08] MEDS: SPIRONOLACTONE 25 MG TAB PO STA (11:31)
--- NOTE | 2024-04-08 16:03 | P.PN ---
Subjective Progress Note Date: 04/08/24 Principal diagnosis: Acute hypoxic respiratory failure, most likely secondary to asymmetric pulmonary edema. And chronic systolic congestive heart failure This is a 73-year-old male patient who is being seen in consultation for abnormal chest x-ray that showed pulmonary filtration involving the right lung and the patient became slightly hypoxic and he is currently on 2 L of oxygen by nasal cannula with pulse ox of 96%. I reviewed the records and also discussed the case with cardiology. In summary, the patient presented to the hospital because of chest discomfort and back pain and the patient subsequently went into ventricular tachycardia. The EKG showed sinus mechanism initially with an anterior wall myocardial infarction and the patient also had elevated troponin level and echocardiogram showed anteroapical and anteroseptal akinesis. The patient has undergone coronary stenting more than 20 years ago. At that point, the patient was taken to cardiac catheterization and the patient was found to have chronically occluded RCA with collaterals from the left. The patient has a patent stent in the proximal LAD with mild in stent restenosis and mild disease involving the circumflex and normal left ventricular diastolic pressure. The patient was told to have ventricular tachycardia related to previous myocardial infarction and scarring. Based on that, recommendations were made for an AICD placement. The patient also has cardiomyopathy and is echocardiogram that was done on 03/26/2024 showed evidence of impaired LV function with an ejection fraction of 35 to 40% and segmental wall motion abnormalities and moderately impaired ventricular systolic function. No other significant valvular abnormalities. The patient had mild to moderate MR and mild aortic stenosis and mild aortic regurgitation. At this point in time, the patient remains on IV heparin. Remains on amiodarone 4 mg p.o. twice a day. Remains on metoprolol 50 mg twice a day. Free of any chest pain. Hemodynamically stable. I reviewed the chest x-ray that was done on this patient on 03/26/2024 and the patient was found to have increased interstitial markings probably some asymmetric pulmonary edema. No clear indication for bacterial pneumonia and a follow-up chest x-ray is accordingly recommended. Patient was evaluated today on 04/05/24, feeling much better, hardly any pulmon josé miguel symptoms no cough no wheezing no shortness of breath, patient is on room air, does not seem to be in any distress.WBC count is 7.8 hemoglobin is 11.9 PTT is 47.8 electrolytes are normal renal profile is normal telemetry shows A-fib with controlled rate, patient is awaiting EP evaluationStatus post cardiac catheterization revealing chronically occluded RCA with collaterals from the left system, patent stent in the proximal LAD with mild in-stent restenosis, mild disease in the left circumflex and normal LVEDP Patient was evaluated today on 04/06/2024, patient is doing well, relatively asymptomatic, no cough no wheezing no shortness of breath, he is scheduled to have AICD placement tomorrow by Dr. MotaBC count is 7.8 hemoglobin 11.9 PTT is 35.1. Basic metabolic profile is normal renal profile is normal, Patient is on room air, O2 sats is 98% Patient was seen on 04/07/2024, patient is doing great, asymptomatic, patient would like to go home, losartan was increased by cardiology to 100 mg daily blood pressure remains poorly controlled, patient remains on beta-blockers, he had uneventful AICD placement. Labs today are unremarkable including CBC basic metabolic profile and renal profile x-ray yesterday showed no evidence of active pulmonary disease no evidence of pulmonary edema Patient was seen today on 04/08/2024, patient is doing well, he was cleared by cardiology for discharge, waiting for his primary care physician to discharge. Pulmonary plasencia no cough no wheezing no shortness of breath, and on physical examination he sounded fairly clear. No evidence of pulmonary edema on physical examination. Objective - Vital Signs Vital signs: Vital Signs Temp 98.4 F 04/08/24 11:25 Pulse 79 04/08/24 11:25 Resp 16 04/08/24 11:25 BP 177/83 04/08/24 11:25 Pulse Ox 100 04/08/24 11:25 FiO2 Intake & Output 04/07/24 04/08/24 04/08/24 18:59 06:59 18:59 Intake Total 920 20 678 Output Total 1 Balance 920 19 678 Weight 84.3 kg Intake: IV 40 20 20 Invasive Line 1 20 10 Invasive Line 3 20 20 10 Intake, IV Titration 100 Amount ceFAZolin 2 gm In Sodium 50 Chloride 0.9% 50 ml @ 100 mls/hr IVPB ONCE PRN Rx# :[id number] ceFAZolin 2 gm In Sodium 50 Chloride 0.9% 50 ml @ 100 mls/hr IVPB Q6H [facility] Rx#: [id number] Oral 780 0 658 Output: Urine 1 Other: Voiding Method Toilet Toilet Toilet Urinal Urinal Urinal # Voids 1 # Bowel Movements 1 - Exam General: The patient is awake and alert, in no distress, and does not appear acutely ill. On room air Skin: Skin is warm and dry and no rashes or lesions are noted. Eye: Pupils are equal, round and reactive to light, extra-ocular movements are intact; there is normal conjunctiva bilaterally. Ears, nose, mouth and throat: There are moist mucous membranes and no oral lesions. Neck: The neck is supple, there is no tenderness or JVD. Cardiovascular: Irregular rate and rhythm. S1 and S2 heard. Systolic murmur noted. Respiratory: Diminished breath sounds at the bases no crackles rhonchi or wheezes Gastrointestinal: Soft, non-distended, non-tender abdomen without masses or organomegaly noted. There is no rebound or guarding present. Bowel sounds are unremarkable. Back: There is no tenderness to palpation in the midline. There is no obvious deformity. Neurological: CN II-XII intact, Cranial nerves III through XII are intact. T here are no obvious motor or sensory deficits. Coordination appears grossly intact. Speech is normal. Psychiatric: Cooperative, appropriate mood & affect, normal judgment. - Labs CBC & Chem 7: 04/08/24 06:22 04/08/24 06:22 Labs: Abnormal Lab Results - Last 24 Hours (Table) 04/08/24 04/08/24 Range/Units 06:22 06:22 RBC 3.96 L (4.30-5.90) m/uL Hgb 12.4 L (13.0-17.5) gm/dL Hct 38.4 L (39.0-53.0) % Lymphocytes # 0.6 L (1.0-4.8) k/uL Sodium 135 L (137-145) mmol/L Glucose 123 H (74-99) mg/dL Total Protein 6.0 L (6.3-8.2) g/dL Assessment and Plan Assessment: Impression: Acute hypoxic respiratory failure, improved with treatment of his unilateral pulmonary edema patient is known to have history of chronic systolic congestive heart failure, chest x-ray today is showing improvement in his pulmonary edema Symptomatic coronary artery disease,vrecent cardiac catheterization indicating chronically occluded RCA with collaterals from the left along with a patent stent in the LAD and normal left-ventricular diastolic pressure Chronic systolic heart failure with ejection fraction of 35% Ventricular tachycardia status post cardioversion and current heart rate is sinus mechanism and the patient is currently on a combination of metoprolol and amiodarone. Paroxysmal atrial fibrillation Hypertension Hyperlipidemia Diabetes mellitus Recommendation: Considering the patient is doing well Considering the patient is cleared by cardiology Considering the patient has no active pulmonary issues at this point Will clear for discharge and follow-up on outpatient basis if needed. . Will continue to follow Time with Patient: Less than 30
[2024-04-08] MEDS ORDERED: AMIODARONE 200 MG TAB PO SCH (21:00)
[2024-04-09] MEDS ORDERED: SPIRONOLACTONE 25 MG TAB PO SCH (09:00)
--- NOTE | 2024-04-09 10:45 | P.DS ---
Providers Date of admission: 04/03/24 01:50 Expected date of discharge: 04/09/24 Attending physician: Mathieu Tatum Consults: 04/03/24 01:50 Consult Physician Urgent Consulting Provider: Zenaida López Consult Reason/Comments: Ventricular tachycardia Do you want consulting provider notified?: Already Contacted 04/03/24 13:50 Consult Physician Routine Consulting Provider: Betsy Prabhakar Consult Reason/Comments: Right middle lobe infiltrate Do you want consulting provider notified?: Yes 04/04/24 12:11 Consult Physician Routine Consulting Provider: Zev Beyer Consult Reason/Comments: VTACH, AICD implantation Do you want consulting provider notified?: Already Contacted Primary care physician: Griselda Pisano [facility] Course: Discharge diagnosis Chest pain and shortness of breath on presentation Elevated troponin levels Ventricular tachycardia in the emergency room with cardioversion Underlying history of hypertension Underlying history of hyperlipidemia Underlying history of diabetes mellitus Previous history of coronary artery disease with angioplasty and stent placement more than 30 years ago Right middle lobe infiltrate on chest x-ray Hospital course Jameel Ferreira, is a 73-year-old male who presented to [facility] emergency room with a chief complaint of chest discomfort radiating to the middle of his back and shortness of breath. Patient stated that he had a myocardial infarction in 1992 followed by cardiac catheterization with angioplasty and stent placement, at that time. Patient states that few months ago he had cardiac catheterization, he had minimal disease without any need for angioplasty or stent placement. On presentation to emergency room heart rate was in the 200s, EKG revealed ventricular tachycardia, and patient underwent cardioversion, he was started on IV heparin, IV amiodarone, and cardiology consultation was requested He was evaluated in the emergency room vital examination on presentation revealed a temperature of 97.8 pulse 202 respiration 20 blood pressure 126/84 pulse ox 98% on room air Laboratory data revealed a white blood count of 11.6 hemoglobin 14.3 platelet count 268 BUN 31 creatinine 1.21 troponin level 0.22 Testing in the emergency room revealed EKG revealed ventricular tachycardia, chest x-ray revealed right middle lobe infiltrate. Patient was admitted to telemetry floor for further evaluation and treatment On 04/04/2024 patient was seen and examined on the telemetry floor he is alert and oriented x 3 in no apparent distress he denies any complaints at this time there is no fever or chills no headache or dizziness no chest pain no shortness of breath no cough no nausea or vomiting no abdominal pain no diarrhea and no urinary symptoms. Results of cardiac catheterization were discussed with the patient. At this time we are awaiting further recommendation from cardiology regarding ICD implantation. On 04/05/2024 patient was seen and examined on the telemetry floor he is alert and oriented x 3 in no apparent distress there is no fever or chills no headache or dizziness no chest pain no shortness of breath no cough no nausea or vomiting no abdominal pain no diarrhea and no urinary symptoms at this time we are awaiting further recommendation from cardiology in regard to ICD placement. On 04/06/2024 patient is alert and oriented x 3. Per patient plans today for AICD placement per cardiology. At this time patient denies chest pain or shortness of breath. Patient denies nausea vomiting or diarrhea. Patient denies any urinary burning or frequency. Patient remains on IV heparin. Current vital signs temp 98.5, heart rate 79, respiratory rate 16, blood pressure 152/82 with pulse ox 98% on room air On 04/07/2024 patient is alert and oriented x 3. Patient had AICD placement yesterday. Patient having significant elevated blood pressure. Cardiology to adjust medication. Continue to monitor for the next 24 hours. Patient denies chest pain or shortness of breath. Patient denies nausea vomiting or diarrhea. Patient denies any urinary burning or frequency On 04/08/2024 patient is alert and oriented x 3. Patient will be DC'd home on new cardiac medication including amiodarone Aldactone Cozaar and Lopressor. Patient to follow-up with PCP and cardiology services for further management Patient Condition at Discharge: Stable Plan - Discharge Summary Discharge Rx Participant: No New Discharge Prescriptions: New Spironolactone [Aldactone] 50 mg PO DAILY 30 Days #30 tab Aspirin 81 mg PO DAILY 30 Days #30 tab Losartan [Cozaar] 100 mg PO DAILY 30 Days #30 tab Atorvastatin [Lipitor] 80 mg PO DAILY 30 Days #30 tab Amiodarone [Cordarone] 200 mg PO BID 60 Days #30 tab Nitroglycerin Sl Tabs [Nitrostat] 0.4 mg SUBLINGUAL Q5M PRN 30 Days #25 tab PRN Reason: Chest Pain Metoprolol Succinate (ER) [Toprol XL] 75 mg PO DAILY 30 Days #30 tab Continue metFORMIN HCL [Glucophage] 500 mg PO AC-BID gemfibroziL [Lopid] 600 mg PO AC-BID Apixaban [Eliquis] 5 mg PO BID Discontinued Atorvastatin [Lipitor] 40 mg PO HS atenoloL [Tenormin] 25 mg PO DAILY Losartan [Cozaar] 25 mg PO HS Discharge Medication List metFORMIN HCL [Glucophage] 500 mg PO AC-BID 03/30/15 [History] Apixaban [Eliquis] 5 mg PO BID 04/03/24 [History] gemfibroziL [Lopid] 600 mg PO AC-BID 04/03/24 [History] Amiodarone [Cordarone] 200 mg PO BID 60 Days #30 tab 04/08/24 [Rx] Aspirin 81 mg PO DAILY 30 Days #30 tab 04/08/24 [Rx] Atorvastatin [Lipitor] 80 mg PO DAILY 30 Days #30 tab 04/08/24 [Rx] Losartan [Cozaar] 100 mg PO DAILY 30 Days #30 tab 04/08/24 [Rx] Metoprolol Succinate (ER) [Toprol XL] 75 mg PO DAILY 30 Days #30 tab 04/08/24 [Rx] Nitroglycerin Sl Tabs [Nitrostat] 0.4 mg SUBLINGUAL Q5M PRN 30 Days #25 tab 04/08/24 [Rx] Spironolactone [Aldactone] 50 mg PO DAILY 30 Days #30 tab 04/08/24 [Rx] Follow up Appointment(s)/Referral(s): Zev Beyer MD [STAFF PHYSICIAN] - 1 Week (office to call you with appt time) Griselda Pisano MD [Primary Care Provider] - 1-2 days (Apr 15, 11:00) Patient Instructions/Handouts: *Surgery [facility] - After Heart Catheterization - Immigration Services Officer Instructions, Tachycardia (GEN), Pacemaker (DC) Activity/Diet/Wound Care/Special Instructions: heart healthy diet activity limitation; do not submerge left wrist in water, avoid bending/flexing the wrist do not lift anything heavier than 10 pounds for 1 week do not raise left arm above shoulder level keep dressing in place until follow up wear a sling as a reminder if needed Discharge Disposition: HOME WITH HOME HEALTH SERVICES
[2024-04-09 11:56] LABS: Glucose,Whole Blood 123 mg/dL (70-110)
[2024-04-09 11:57] LABS: Glucose,Whole Blood 113 mg/dL (70-110)
[2024-04-09 11:57] LABS: Glucose,Whole Blood 101 mg/dL (70-110)
[2024-04-09 11:57] LABS: Glucose,Whole Blood 111 mg/dL (70-110)
[2024-04-09 11:57] LABS: Glucose,Whole Blood 107 mg/dL (70-110)
== END 2024-04-08 13:55 | disposition home health service (06) | DRG 275 ==
LOC: EC 22:09 → 3SCARD 04-03 01:50
PROVIDERS: ADMIT Internal Medicine; ATTEND Internal Medicine
PROC: 5A2204Z Restoration of Cardiac Rhythm, Single (ICD-10-PCS; 2024-04-02)
PROC: 4A023N7 Measurement of Cardiac Sampling and Pressure, Left Heart, Percutaneous Approach (ICD-10-PCS; 2024-04-03)
PROC: B2111ZZ Fluoroscopy of Multiple Coronary Arteries using Low Osmolar Contrast (ICD-10-PCS; 2024-04-03)
PROC: 0JH608Z Insertion of Defibrillator Generator into Chest Subcutaneous Tissue and Fascia, Open Approach (ICD-10-PCS; principal; 2024-04-06 09:30)
PROC: 0JH60FZ Insertion of Subcutaneous Defibrillator Lead into Chest Subcutaneous Tissue and Fascia, Open Approach (ICD-10-PCS; 2024-04-06 13:45)
DX: I47.20 Ventricular tachycardia, unspecified (principal); I21.A1 Myocardial infarction type 2; J96.01 Acute respiratory failure with hypoxia; T82.855A Stenosis of coronary artery stent, initial encounter; I50.22 Chronic systolic (congestive) heart failure; I11.0 Hypertensive heart disease with heart failure; E11.9 Type 2 diabetes mellitus without complications; I48.0 Paroxysmal atrial fibrillation; I25.5 Ischemic cardiomyopathy; I25.10 Atherosclerotic heart disease of native coronary artery without angina pectoris; E78.5 Hyperlipidemia, unspecified; I08.0 Rheumatic disorders of both mitral and aortic valves; R91.8 Other nonspecific abnormal finding of lung field; Y71.1 Therapeutic (nonsurgical) and rehabilitative cardiovascular devices associated with adverse incidents; I25.2 Old myocardial infarction; Z79.82 Long term (current) use of aspirin; Z79.899 Other long term (current) drug therapy; Z79.01 Long term (current) use of anticoagulants; Z79.84 Long term (current) use of oral hypoglycemic drugs
CPT/HCPCS: 33249; 36410; 36415; 71045; 71046; 76937; 80048; 80053; 80061; 81003; 82272; 83735; 84145; 84484; 85025; 85049; 85610; 85730; 93005; 93306; 93458; 94760; 96365; 96366; 96367; 96368; 96375; 99156; 99291

== ENCOUNTER → 2024-04-26 | Day surgery (SDC) | payer MEDICARE ==
[2024-04-26] MEDS: CEPHALEXIN 500 MG CAP PO STA (16:12)
--- NOTE | 2024-04-26 20:12 | P.EPPROC ---
- EP Procedure Note Electrophysiology Procedure Note: Small hematoma of the pocket Small hematoma 0.5 x 0.5 cm at the lateral edge of the incision with a palpable gap at that age No drainage of blood or secretions No evidence for infection Patient is brought to the EP area The left pectoral area was cleaned and draped Over a Steri-Strip a single silk suture was applied at the edge of the surgical incision The area was dressed Oral antibiotics administered Plan Suture removal after 7 days Keep area dry
== END ==
LOC: CATHEP 16:36
PROVIDERS: ATTEND Internal Medicine Clinical Cardiac Electrophysiology
DX: M79.81 Nontraumatic hematoma of soft tissue (principal)
CPT/HCPCS: 17999